=== PATIENT | female | born 1945 | race African-American/Black ===

== ENCOUNTER 2016-05-18 17:43 | Outpatient (CLI) | payer MEDICARE ==
[2016-05-18 18:38] LABS: Anion Gap 15 mmol/L (10-20); BUN (Urea Nitrogen) 9 mg/dL (9.8-20.1); Calc. Creatinine Clearance 0 mL/min (70-130); Carbon Dioxide 21 mmol/L (23-31); Chloride 110 mmol/L (98-107)
[2016-05-18 18:39] LABS: ALT (SGPT) 21 U/L (0-55); AST (SGOT) 21 U/L (5-34); Alkaline Phosphatase 148 U/L (40-150); Bilirubin, Total 0.3 mg/dL (0.2-1.2); Calcium 8.7 mg/dL (7.8-10.44); Estimated GFR-MDRD Greater than 90; Globulin 3.8 g/dL (2.4-3.5); LDL Cholesterol, Calculated 95 mg/dL; Protein, Total 7.8 g/dL (5.8-8.1)
[2016-05-18 19:21] LABS: Hematocrit 42.7 % (36.0-47.0); Neutrophil 35 % (42-75); Reactive Lymphocytes 5 % (0-10); Red Blood Cell (RBC) Count 4.65 mill/uL (4.20-5.40); White Blood Cell (WBC) Count 6.8 thou/uL (4.8-10.8)
== END 2016-05-18 17:44 | disposition home or self-care (01) ==
LOC: NAV SJFMSP 17:43
PROVIDERS: ATTEND Family Medicine
DX: E78.5 Hyperlipidemia, unspecified (principal); E03.9 Hypothyroidism, unspecified; R56.9 Unspecified convulsions
CPT/HCPCS: 80053; 80061; 80184; 84439; 84443; 85025

== ENCOUNTER 2016-05-24 16:45 | Emergency (ER) | payer MEDICARE ==
[2016-05-24 17:00] LABS: Bilirubin Negative (Negative); Blood, Urine Trace (Negative); Glucose, Urine (Dipstick) Negative (Negative); Ketone, Urine 15 mg/dL (Negative); Nitrite Negative (Negative); Protein, Urine (Dipstick) 100 mg/dL (Neg-Trace); Urobilinogen 0.2 mg/dL (0.2-1.0)
[2016-05-24 17:13] LABS: RBC/HPF 0-3 HPF (0-3); WBC/HPF 0-3 HPF (0-3)
--- NOTE | 2016-05-24 18:19 | ERRECORD ---
[facility] HPI UTI (17:04 BLEW) CHIEF COMPLAINT: Patient presents for evaluation of urinary tract infection signs or symptoms:, dysuria, frequency, hesitancy. HISTORIAN: History provided by patient. LOCATION: Symptoms are localized, most severe in the suprapubic region. QUALITY: "burning". SEVERITY: Maximum severity of symptoms moderate, Currently symptoms are moderate. TIME COURSE: Gradual onset of symptoms, are constant. ASSOCIATED WITH FEMALE: No associated abdominal pain, No associated chills, No associated diarrhea, No associated flank pain, No associated fever, No associated inability to tolerate oral fluids, No associated nausea, No associated night sweats, No associated vomiting. EXACERBATED BY: Patient's condition exacerbated by urination. RELIEVED BY: Patient's condition relieved by nothing, Patient's condition relieved by Cranberry juice not helpful. ROS (17:06 BLEW) CONSTITUTIONAL: Negative constitutional review of systems, Historian denies chills, denies fever. EYES: Negative eye review of systems. ENT: Negative ears, nose, throat review of systems. CARDIOVASCULAR: Negative cardiovascular review of systems, Historian denies chest pain, denies palpitations. RESPIRATORY: Negative respiratory review of systems, Historian denies cough, denies shortness of breath. GI: Negative gastrointestinal review of systems, Historian denies abdominal pain, denies constipation, denies diarrhea. MUSCULOSKELETAL: Negative musculoskeletal review of systems. SKIN: Negative skin review of systems. NEUROLOGIC: Negative neurologic review of systems. ENDOCRINE: Negative endocrine review of systems. HEMO/LYMPHATIC: Normal hematologic/lymphatic system review. PSYCHIATRIC: Negative psychiatric review of systems. NOTES: All other ROS is negative except as listed in HPI. PAST MEDICAL HISTORY MEDICAL HISTORY: Flu vaccine not up to date, Tetanus immunization up to date, Pneumococcal vaccine up to date, Past medical history includes musculoskeletal disorder, chronic back pain, left knee pain, Past medical history includes endocrine disease, hypothyroidism, includes history of hyperlipidemia,history of hypertension, which has been treated, includes neurological disease, Epilepsy musculoskeletal disorder, osteoarthritis. (16:54 BDON) FEMALE SURGICAL HISTORY: Surgical history of cholecystectomy, Surgical history of hysterectomy, Surgical history of thyroidectomy,. (16:54 BDON) &a-1R&a+25V*p+0X*i0056F*c202B*c15G*c2P*p-0X&a-25V&a+1R Name: Digna Thompson : 1945 F70 MedRec: [id number] AcctNum: [id number] Prepared: Darline May 25, 2016 08:03 by Interface Page 1 of 4 pMD [facility] EMERGENCY RECORD PSYCHIATRIC HISTORY: No previous psychiatric history. (16:54 BDON) SOCIAL HISTORY: Patient denies alcohol use, Patient denies drug use, Patient has no smoking history,. (16:54 BDON) NOTES: I have reviewed and agree with the PMH/PSxH/FamHx/SocHx obtained by the nurse. (17:06 BLEW) KNOWN ALLERGIES Adult Aspirin CURRENT MEDICATIONS (16:52 BDON) atorvastatin: TABLET : Strength - 10 mg : ORAL Patient Dose: 1 tab(s) Oral once a day (at bedtime). levothyroxine: TABLET : Strength - 100 mcg : ORAL Patient Dose: 1 tab(s) Oral once a day (in the morning).on an empty stomach. NexIUM: CAPSULE,DELAYED RELEASE (ENTERIC COATED) : Strength - 40 mg : ORAL Patient Dose: 1 tab(s) Oral once a day. amLODIPine: TABLET : Strength - 5 mg : ORAL Patient Dose: 1 tab(s) Oral once a day. ranitidine HCl: CAPSULE : Strength - 150 mg : ORAL Patient Dose: 1 tab(s) Oral 2 times a day. PHENobarbital: TABLET : Strength - 32.4 mg : ORAL Patient Dose: 4 tab(s) Oral once a day. topiramate: TABLET : Strength - 50 mg : ORAL Patient Dose: 50 mg Oral once a day (at bedtime). traMADol: TABLET : Strength - 50 mg : ORAL Patient Dose: 50 mg Oral every 6 hours PRN. VITAL SIGNS (16:52 BDON) VITAL SIGNS: BP: 121/74, Pulse: 100, Resp: 17, Temp: 96.0 (Oral), Pain: 2, O2 sat: 96, Time: 05/24/2016 16:52. PHYSICAL EXAM (17:06 BLEW) CONSTITUTIONAL: Vital signs reviewed, Patient appears non toxic, Patient alert and oriented to person, place and time, Pt is in no apparent distress. HEAD: Head exam included findings of head atraumatic, normocephalic. EYES: Eye exam included findings of eyelids normal to inspection, Pupils equally round and reactive to light, Extraocular muscles intact. &a-1R&a+25V*p+0X*t8602F*c202B*c15G*c2P*p-0X&a-25V&a+1R Name: Digna Thompson : 1945 F70 MedRec: [id number] AcctNum: [id number] Prepared: Darline May 25, 2016 08:03 by Interface Page 2 of 4 pMD [facility] EMERGENCY RECORD ENT: ENT exam normal, Nose exam normal, no nasal deformity, no bleeding from nares, Pharynx exam normal, Mouth exam normal, mucous membranes moist. NECK: Neck exam included findings of normal range of motion, Trachea midline. RESPIRATORY CHEST: Respiratory and chest exam normal, Breath sounds clear, No wheezing, No rales, Chest exam included findings of chest movement symmetrical, Chest expansion equal. CARDIOVASCULAR: Cardiovascular assessment normal, Cardiovascular exam included findings of heart rate regular rate and rhythm, Heart sounds normal. ABDOMEN FEMALE: Abdominal exam included findings of abdomen nontender, Bowel sounds normal, no mass, no pulsatile masses, no peritoneal signs. BACK: Back exam included findings of normal inspection, range of motion normal, no costovertebral angle tenderness. UPPER EXTREMITY: Upper extremity exam included findings of inspection normal, Range of motion normal. LOWER EXTREMITY: Lower extremity exam included findings of inspection normal, Range of motion normal. NEURO: Neuro exam findings include patient oriented to person, place and time, Speech normal, no focal motor deficits, no focal sensory deficits. SKIN: Skin exam included findings of skin warm, dry, and normal in color. LYMPHATIC: Lymphatic exam normal. PSYCHIATRIC: Psychiatric exam included findings of patient oriented to person place and time, Normal affect. PROBLEM LIST No recorded problems DIAGNOSIS (17:29 BLEW) FINAL: PRIMARY: DYSURIA. PRESCRIPTION (17:30 BLEW) Pyridium: TABLET : 200 mg : ORAL : Quantity: 1 Unit: tab(s) Route: ORAL Schedule: 3 times a day Dispense: 12 May substitute. Refills: No Refills . NOTES: No Refills. Cipro tablet: TABLET : 500 mg : ORAL : Quantity: 1 Unit: tab(s) Route: ORAL Schedule: 2 times a day (before meals) Dispense: 14 May substitute. Refills: No Refills . NOTES: ^s=No Refills No Refills. DISPOSITION PATIENT: Disposition Type: Discharge, Disposition: *Discharge Home. (17:29 BLEW) &a-1R&a+25V*p+0X*k8760X*c202B*c15G*c2P*p-0X&a-25V&a+1R Name: Jay Digna B : 1945 F70 MedRec: [id number] AcctNum: [id number] Prepared: SunMay 25, 2016 08:03 by Interface Page 3 of 4 pMD [facility] EMERGENCY RECORD Patient left the department. (17:57 BDON) Cuellar: BDON=ASHER Lee, Jillian BLEW=DO Bryson Brandon &a-1R&a+25V*p+0X*j1504T*c202B*c15G*c2P*p-0X&a-25V&a+1R Name: Digna Thompson : 1945 F70 MedRec: [id number] AcctNum: [id number] Prepared: Darline May 25, 2016 08:03 by Interface Page 4 of 4 pMD MTDD
--- NOTE | 2016-05-24 18:21 | PICIS ---
[facility] EMERGENCY RECORD TRIAGE (SunMay 24, 2016 16:49 JPAR) TRIAGE NOTES: Painful urination. (SunMay 24, 2016 16:49 JPAR) PATIENT: NAME: Digna Thompson, AGE: 70, GENDER: female, : Sun1945, TIME OF GREET: SunMay 24, 2016 16:46, PREFERRED LANGUAGE: Qatari, ETHNICITY: Not or , ECODE BILLING MAP: [facility], SSN: [id number], Zip Code: [address], KG WEIGHT: 92.99, PHONE: , , , PERSON ID: [id number], PCP: MD Yu Jacques. (SunMay 24, 2016 16:49 JPAR) COMPLAINT: PAINFUL URINATION. (SunMay 24, 2016 16:49 JPAR) ADMISSION: URGENCY: 4 Non Urgent, ADMISSION SOURCE: Home, TRANSPORT: Walk-in, BED: TRIAGE. (SunMay 24, 2016 16:49 JPAR) ASSESSMENT: Assessment: Frequent, burning urination, Symptoms began 1 week ago. (16:54 BDON) PROVIDERS: TRIAGE NURSE: Yovany Bliss RN. (SunMay 24, 2016 16:49 JPAR) VITAL SIGNS: BP 121/74, Pulse 100, Resp 17, Temp 96.0, (Oral), Pain 2, O2 Sat 96, Time 05/24/2016 16:52. (16:52 BDON) PREVIOUS VISIT ALLERGIES: Adult Aspirin. (SunMay 24, 2016 16:49 JPAR) Adult Aspirin. (16:54 BDON) KNOWN ALLERGIES Adult Aspirin CURRENT MEDICATIONS (16:52 BDON) atorvastatin: TABLET : Strength - 10 mg : ORAL Patient Dose: 1 tab(s) Oral once a day (at bedtime). levothyroxine: TABLET : Strength - 100 mcg : ORAL Patient Dose: 1 tab(s) Oral once a day (in the morning).on an empty stomach. NexIUM: CAPSULE,DELAYED RELEASE (ENTERIC COATED) : Strength - 40 mg : ORAL Patient Dose: 1 tab(s) Oral once a day. amLODIPine: TABLET : Strength - 5 mg : ORAL Patient Dose: 1 tab(s) Oral once a day. ranitidine HCl: CAPSULE : Strength - 150 mg : ORAL Patient Dose: 1 tab(s) Oral 2 times a day. PHENobarbital: TABLET : Strength - 32.4 mg : ORAL Patient Dose: 4 tab(s) Oral once a day. topiramate: TABLET : Strength - 50 mg : ORAL Patient Dose: 50 mg Oral once a day (at bedtime). traMADol: &a-1R&a+25V*p+0X*h9234Y*c202B*c15G*c2P*p-0X&a-25V&a+1R Name: Digna Thompson : 1945 F70 MedRec: [id number] AcctNum: [id number] Prepared: Darline May 25, 2016 08:08 by Interface Page 1 of 6 pMD [facility] EMERGENCY RECORD TABLET : Strength - 50 mg : ORAL Patient Dose: 50 mg Oral every 6 hours PRN. VITAL SIGNS (16:52 BDON) VITAL SIGNS: BP: 121/74, Pulse: 100, Resp: 17, Temp: 96.0 (Oral), Pain: 2, O2 sat: 96, Time: 05/24/2016 16:52. NURSING ASSESSMENT: GENITOURINARY (17:01 BDON) CONSTITUTIONAL: Patient arrives ambulatory, Gait steady, History obtained from patient, Patient appears comfortable, Patient cooperative, Patient alert, Oriented to person, place and time, Skin warm, Skin dry, Skin normal in color, Patient is well-groomed. PAIN FEMALE: burning pain. GENITOURINARY FEMALE: Associated with urinary complaints, burning, frequency. ABDOMEN: Abdomen assessment findings include abdomen symmetrical, Abdomen soft, tender, suprapubic. SAFETY: Cart/Stretcher in lowest position, Hospital ID band on, Patient in view of the nursing station. NURSING PROCEDURE: DISCHARGE NOTE (17:35 BDON) DISCHARGE: Patient discharged to home, ambulating without assistance, family driving, accompanied by other family member, Summary of Care printed/ provided, Patient requested and was provided an electronic copy of Discharge Instructions, Transition record given to patient, Discharge instructions given to patient, Simple or moderate discharge teaching performed, Prescriptions given and instructions on side effects given, Medication reconciliation form given, Above person(s) verbalized understanding of discharge instructions and follow-up care, Patient treated and evaluated by physician. NURSING PROCEDURE: URINE COLLECTION (16:53 LAURIE) PATIENT IDENTIFIER: Patient actively involved in identification process, Patient's identity verified by patient stating name, Patient's identity verified by patient stating date, Patient's identity verified by hospital ID bracelet. URINE COLLECTION FEMALE: Urine collection indicated to monitor output, Urine collection indicated for Burning Frequent Urination, Urine collected by void, output amount (mL) 30, urine yellow in color, and clear, Specimen labeled in the presence of the patient and sent to lab, Specimen obtained for culture labeled in the presence of the patient and sent to lab. SAFETY: Side rails up, Cart/Stretcher in lowest position, Call light within reach, Hospital ID band on. ORDER DETAILS Order Name: Culture, Urine, Status: Active, Time: 17:34 05/24/2016, User: JOSE CARLOS, &a-1R&a+25V*p+0X*f9444Z*c202B*c15G*c2P*p-0X&a-25V&a+1R Name: Digna Thompson : 1945 F70 MedRec: [id number] AcctNum: [id number] Prepared: [facility] May 25, 2016 08:08 by Interface Page 2 of 6 D [facility] EMERGENCY RECORD - Ordered for: DO Bryson Brandon, - Entered by: DO Bryson Brandon - [facility] May 24, 2016 17:34, - Quantity: 1, Order Name: Urinalysis w/ Rflx Microscopic, Status: Active, Time: 16:50 05/24/2016, User: LAURIE, - Ordered for: DO Bryson Brandon, - Entered by: ASHER Bliss Jason - [facility] May 24, 2016 16:50, - Quantity: 1. HPI UTI (17:04 STEFANW) CHIEF COMPLAINT: Patient presents for evaluation of urinary tract infection signs or symptoms:, dysuria, frequency, hesitancy. HISTORIAN: History provided by patient. LOCATION: Symptoms are localized, most severe in the suprapubic region. QUALITY: "burning". SEVERITY: Maximum severity of symptoms moderate, Currently symptoms are moderate. TIME COURSE: Gradual onset of symptoms, are constant. ASSOCIATED WITH FEMALE: No associated abdominal pain, No associated chills, No associated diarrhea, No associated flank pain, No associated fever, No associated inability to tolerate oral fluids, No associated nausea, No associated night sweats, No associated vomiting. EXACERBATED BY: Patient's condition exacerbated by urination. RELIEVED BY: Patient's condition relieved by nothing, Patient's condition relieved by Cranberry juice not helpful. ROS (17:06 BLEW) CONSTITUTIONAL: Negative constitutional review of systems, Historian denies chills, denies fever. EYES: Negative eye review of systems. ENT: Negative ears, nose, throat review of systems. CARDIOVASCULAR: Negative cardiovascular review of systems, Historian denies chest pain, denies palpitations. RESPIRATORY: Negative respiratory review of systems, Historian denies cough, denies shortness of breath. GI: Negative gastrointestinal review of systems, Historian denies abdominal pain, denies constipation, denies diarrhea. MUSCULOSKELETAL: Negative musculoskeletal review of systems. SKIN: Negative skin review of systems. NEUROLOGIC: Negative neurologic review of systems. ENDOCRINE: Negative endocrine review of systems. HEMO/LYMPHATIC: Normal hematologic/lymphatic system review. PSYCHIATRIC: Negative psychiatric review of systems. NOTES: All other ROS is negative except as listed in HPI. PAST MEDICAL HISTORY MEDICAL HISTORY: Flu vaccine not up to date, Tetanus &a-1R&a+25V*p+0X*v8781U*c202B*c15G*c2P*p-0X&a-25V&a+1R Name: Digna Thompson : 1945 F70 MedRec: [id number] AcctNum: [id number] Prepared: [facility] May 25, 2016 08:08 by Interface Page 3 of 6 pMD [facility] EMERGENCY RECORD immunization up to date, Pneumococcal vaccine up to date, Past medical history includes musculoskeletal disorder, chronic back pain, left knee pain, Past medical history includes endocrine disease, hypothyroidism, includes history of hyperlipidemia,history of hypertension, which has been treated, includes neurological disease, Epilepsy musculoskeletal disorder, osteoarthritis. (16:54 BDON) FEMALE SURGICAL HISTORY: Surgical history of cholecystectomy, Surgical history of hysterectomy, Surgical history of thyroidectomy,. (16:54 BDON) PSYCHIATRIC HISTORY: No previous psychiatric history. (16:54 BDON) SOCIAL HISTORY: Patient denies alcohol use, Patient denies drug use, Patient has no smoking history,. (16:54 BDON) NOTES: I have reviewed and agree with the PMH/PSxH/FamHx/SocHx obtained by the nurse. (17:06 BLEW) PHYSICAL EXAM (17:06 BLEW) CONSTITUTIONAL: Vital signs reviewed, Patient appears non toxic, Patient alert and oriented to person, place and time, Pt is in no apparent distress. HEAD: Head exam included findings of head atraumatic, normocephalic. EYES: Eye exam included findings of eyelids normal to inspection, Pupils equally round and reactive to light, Extraocular muscles intact. ENT: ENT exam normal, Nose exam normal, no nasal deformity, no bleeding from nares, Pharynx exam normal, Mouth exam normal, mucous membranes moist. NECK: Neck exam included findings of normal range of motion, Trachea midline. RESPIRATORY CHEST: Respiratory and chest exam normal, Breath sounds clear, No wheezing, No rales, Chest exam included findings of chest movement symmetrical, Chest expansion equal. CARDIOVASCULAR: Cardiovascular assessment normal, Cardiovascular exam included findings of heart rate regular rate and rhythm, Heart sounds normal. ABDOMEN FEMALE: Abdominal exam included findings of abdomen nontender, Bowel sounds normal, no mass, no pulsatile masses, no peritoneal signs. BACK: Back exam included findings of normal inspection, range of motion normal, no costovertebral angle tenderness. UPPER EXTREMITY: Upper extremity exam included findings of inspection normal, Range of motion normal. LOWER EXTREMITY: Lower extremity exam included findings of inspection normal, Range of motion normal. NEURO: Neuro exam findings include patient oriented to person, place and time, Speech normal, no focal motor deficits, no focal sensory deficits. SKIN: Skin exam included findings of skin warm, dry, and normal in color. &a-1R&a+25V*p+0X*q3735B*c202B*c15G*c2P*p-0X&a-25V&a+1R Name: Digna Thompson Erika : 1945 F70 MedRec: [id number] AcctNum: [id number] Prepared: Dalrine May 25, 2016 08:08 by Interface Page 4 of 6 pMD [facility] EMERGENCY RECORD LYMPHATIC: Lymphatic exam normal. PSYCHIATRIC: Psychiatric exam included findings of patient oriented to person place and time, Normal affect. EVENTS TRANSFER: Triage to Emergency Triage. (SunMay 24, 2016 16:49 JPAR) Emergency Triage to Emergency Room -03. (16:52 BDON) Removed from Emergency Emergency Room -03. (17:57 BDON) PROBLEM LIST No recorded problems DIAGNOSIS (17:29 BLEW) FINAL: PRIMARY: DYSURIA. DISPOSITION PATIENT: Disposition Type: Discharge, Disposition: *Discharge Home. (17:29 BLEW) Patient left the department. (17:57 BDON) INSTRUCTION (17:31 BLEW) DISCHARGE: DYSURIA, UNCERTAIN CAUSE (ADULT). FOLLOWUP: MD Yu Jacques, Family Practice, [facility], [address] [place] [id number], , Follow up with Primary Care Physician in 2-3 days. SPECIAL: Take medications as prescribed. Have you doctor check on culture results in 2-3 days. Call your doctor or return with worsening or worrisome symptoms. PRESCRIPTION (17:30 BLEW) Pyridium: TABLET : 200 mg : ORAL : Quantity: 1 Unit: tab(s) Route: ORAL Schedule: 3 times a day Dispense: 12 May substitute. Refills: No Refills . NOTES: No Refills. Cipro tablet: TABLET : 500 mg : ORAL : Quantity: 1 Unit: tab(s) Route: ORAL Schedule: 2 times a day (before meals) Dispense: 14 May substitute. Refills: No Refills . NOTES: ^s=No Refills No Refills. IMAGING *DISCHARGE INSTRUCTIONS RECEIPT: Image captured from scanner. (17:53 BDON) *SUPPLY CHARGE SHEET: Image captured from scanner. (17:54 BDON) ADMIN DIGITAL SIGNATURE: ASHER Lee, Jillian. (17:57 BDON) DO Bryson Brandon. (SunMay 25, 2016 08:00 BLEW) &a-1R&a+25V*p+0X*h6888M*c202B*c15G*c2P*p-0X&a-25V&a+1R Name: Digna Thompson : 1945 F70 MedRec: [id number] AcctNum: [id number] Prepared: SunMay 25, 2016 08:08 by Interface Page 5 of 6 pMD [facility] EMERGENCY RECORD RESULTS (17:29 BLEW) LABORATORY: Urine Microscopic Collection DT: SunMay 24, 2016 16:55, RBC/HPF 0-3 HPF, Range (0-3), WBC/HPF 0-3 HPF, Range (0-3), *Squamous Epithelial 4-6 - H HPF, Range (0-3). Urinalysis w/ Rflx Microscopic Collection DT: SunMay 24, 2016 16:55, Color Yellow , Range (Yellow), Clarity SL HAZY , Range (Clear), Specific [place], Urine 1.034 , Range (1.002-1.036), , pH, Urine 5.5 , Range (5.0-9.0), Leukocyte Negative , Range (Negative), Nitrite Negative , Range (Negative), *Protein, Urine (Dipstick) 100 - H mg/dL, Range (Neg-Trace), Glucose, Urine (Dipstick) Negative mg/dL, Range (Negative), *Ketone, Urine 15 - H mg/dL, Range (Negative), Urobilinogen 0.2 mg/dL, Range (0.2-1.0), Bilirubin Negative , Range (Negative), *Blood, Urine Trace - H , Range (Negative). Cuellar: CAMELIA=ASHER Lee, Jillian BRANCH=DO Bryson Brandon JPAR=ASHER Bliss, Yovany &a-1R&a+25V*p+0X*d3666S*c202B*c15G*c2P*p-0X&a-25V&a+1R Name: JayMarlyngabriel James : 1945 F70 MedRec: [id number] AcctNum: [id number] Prepared: SunMay 25, 2016 08:08 by Interface Page 6 of 6 pMD MTDD
== END 2016-05-24 17:35 | disposition home or self-care (01) ==
LOC: NAV ERS 16:45
DX: R30.0 Dysuria (principal); E03.9 Hypothyroidism, unspecified; E78.5 Hyperlipidemia, unspecified; I10 Essential (primary) hypertension; Z79.899 Other long term (current) drug therapy
CPT/HCPCS: 81003; 81015; 87086; 99283

== ENCOUNTER 2016-12-19 16:44 | Emergency (ER) | payer MEDICARE ==
[2016-12-19] MEDS ORDERED: Lorazepam 2 MG/ML VIAL ONE ×2 (17:02→17:03)
[2016-12-19 18:21] LABS: #Basophils 0.1 thou/uL (0.0-0.2); #Eosinphils 0.2 thou/uL (0.0-0.7); #Lymphocytes 4.9 thou/uL (1.20-3.40); #Monocytes 0.8 thou/uL (0.11-0.59); #Neutrophils 3.9 thou/uL (1.40-6.50); %Basophils 1.4 % (0.0-1.0); %Eosinophils 1.9 % (0.0-10.0); %Lymphocytes 49.5 % (21.0-51.0); %Monocytes 8.3 % (0.0-10.0); Hemoglobin 12.8 g/dL (12.0-16.0); Mean Corpuscular HGB CONC 31.7 g/dL (32.0-36.0); Mean Corpuscular Hemoglobin 28.4 pg (27.0-31.0); Mean Corpuscular Volume 89.8 fl (81.0-99.0); Mean Platelet Volume 7.9 fL (7.4-10.4); Platelet Count 243 thou/uL (130-400); Red Blood Cell (RBC) Count 4.51 mill/uL (4.20-5.40); White Blood Cell (WBC) Count 9.9 thou/uL (4.8-10.8)
[2016-12-19 18:27] LABS: ALT (SGPT) 14 U/L (8-55); AST (SGOT) 15 U/L (5-34); Albumin 3.6 g/dL (3.4-4.8); Alkaline Phosphatase 145 U/L (40-150); Anion Gap 13 mmol/L (10-20); BUN (Urea Nitrogen) 9 mg/dL (9.8-20.1); Bilirubin, Total 0.2 mg/dL (0.2-1.2); Calc. Creatinine Clearance 0 mL/min (70-130); Calcium 8.4 mg/dL (7.8-10.44); Carbon Dioxide 20 mmol/L (23-31); Chloride 112 mmol/L (98-107); Estimated GFR-MDRD 77; Globulin 3.6 g/dL (2.4-3.5); Glucose 103 mg/dL (80-115); Potassium 3.7 mmol/L (3.5-5.1); Protein, Total 7.2 g/dL (6.0-8.3); Sodium 141 mmol/L (136-145)
[2016-12-19] MEDS ORDERED: Ibuprofen 200 MG TAB ONE (18:47)
--- NOTE | 2016-12-19 20:43 | CT ---
CT BRAIN WITHOUT CONTRAST 12/19/16 HISTORY: Seizure and headache. FINDINGS: Comparison is made with exam of 07/26/15. No evidence of acute infarct, hemorrhage, midline shift or abnormal extra-axial fluid collections ar e seen. The ventricular size is normal and the basilar cisterns patent. The small density in the sub cutaneous left parietal scalp is stable, likely sebaceous cyst is again seen. The bony calvarium is intact. The visualized paranasal sinuses and mastoid air cells are well aerated. IMPRESSION: No CT evidence of acute intracranial process. POS: [facility]
== END 2016-12-19 18:54 | disposition home or self-care (01) ==
LOC: NAV ERS 16:44
DX: R56.9 Unspecified convulsions (principal); G44.209 Tension-type headache, unspecified, not intractable; G89.29 Other chronic pain; M54.9 Dorsalgia, unspecified; M19.90 Unspecified osteoarthritis, unspecified site; Z79.899 Other long term (current) drug therapy
CPT/HCPCS: 36415; 36416; 70450; 80053; 80184; 83605; 85025; J2060

== ENCOUNTER 2017-11-28 20:48 | Emergency (ER) | payer MEDICARE ==
[2017-11-28] MEDS ORDERED: Bacitracin Zinc 1 Packet ONE (21:15)
[2017-11-28] MEDS ORDERED: Acetaminophen 325 MG TAB ONE (22:00)
[2017-11-28] MEDS ORDERED: Meclizine HCl 25 MG TAB ONE (22:00)
[2017-11-28] MEDS ORDERED: Acetaminophen 325 MG Suppository ONE (22:00)
== END 2017-11-28 23:40 | disposition home or self-care (01) ==
LOC: NAV ERS 20:48
DX: R04.0 Epistaxis (principal); R51 Headache; E03.9 Hypothyroidism, unspecified; I10 Essential (primary) hypertension; E78.5 Hyperlipidemia, unspecified; M19.90 Unspecified osteoarthritis, unspecified site; G40.909 Epilepsy, unspecified, not intractable, without status epilepticus; Z79.899 Other long term (current) drug therapy
CPT/HCPCS: 30901

== ENCOUNTER 2018-03-11 11:12 | Outpatient (CLI) | payer MEDICARE ==
--- NOTE | 2018-03-11 17:32 | ULT ---
RIGHT GROIN ULTRASOUND SOFT TISSUE: Date: 03/11/18 HISTORY: Pain. Chronic pain. COMPARISON: None. FINDINGS: There are a few small normal appearing lymph nodes of the right groin. No abnormal mass. IMPRESSION: Normal examination of the right groin. CT may be beneficial to evaluate for hernia if clinically wallace anted. POS: [facility]
== END 2018-03-11 11:13 | disposition home or self-care (01) ==
LOC: NAV ULT 11:12
PROVIDERS: ATTEND Family Medicine
DX: R10.31 Right lower quadrant pain (principal)
CPT/HCPCS: 76999

== ENCOUNTER 2018-11-16 08:58 | Emergency (ER) | payer MEDICARE ==
[2018-11-16] MEDS ORDERED: GASTROGRAFIN 30 ML BOT ONE (09:00)
[2018-11-16] MEDS ORDERED: Iopamidol 370 76% 100 ML VIAL ONE (09:00)
[2018-11-16] MEDS ORDERED: Fentanyl 100 MCG/2 ML VIAL ONE (09:30)
[2018-11-16 09:44] LABS: Bilirubin Negative (Negative); Blood, Urine Trace (Negative); Clarity Clear (Clear); Glucose, Urine (Dipstick) Negative (Negative); Leukocyte Negative (Negative); Nitrite Negative (Negative); Protein, Urine (Dipstick) Negative (Neg-Trace); Urobilinogen 0.2 mg/dL (Less than 2)
[2018-11-16 09:45] LABS: Bacteria/HPF Rare-Few HPF (None Seen); RBC/HPF 0-3 HPF (0-3); WBC/HPF None Seen HPF (0-3)
[2018-11-16 10:09] LABS: ALT (SGPT) 15 U/L (8-55); AST (SGOT) 15 U/L (5-34); Albumin 3.8 g/dL (3.4-4.8); Alkaline Phosphatase 157 U/L (40-150); Anion Gap 15 mmol/L (10-20); BUN (Urea Nitrogen) 12 mg/dL (9.8-20.1); Bilirubin, Total 0.3 mg/dL (0.2-1.2); Calc. Creatinine Clearance 0 mL/min (70-130); Calcium 9.2 mg/dL (7.8-10.44); Carbon Dioxide 21 mmol/L (23-31); Chloride 107 mmol/L (98-107); Estimated GFR-MDRD 85; Globulin 4.1 g/dL (2.4-3.5); Glucose 89 mg/dL (83-110); Protein, Total 7.9 g/dL (6.0-8.3); Sodium 139 mmol/L (136-145)
[2018-11-16 10:11] LABS: #Basophils 0.2 thou/uL (0.0-0.2); #Eosinphils 0.2 thou/uL (0.0-0.7); #Lymphocytes 4.6 thou/uL (1.20-3.40); #Neutrophils 5.4 thou/uL (1.40-6.50); %Basophils 1.3 % (0.0-1.0); %Eosinophils 1.9 % (0.0-10.0); %Lymphocytes 40.5 % (21.0-51.0); %Monocytes 8.6 % (0.0-10.0); %Neutrophils 47.8 % (42.0-75.0); Hemoglobin 13.2 g/dL (12.0-16.0); Mean Corpuscular HGB CONC 31.2 g/dL (32.0-36.0); Mean Corpuscular Hemoglobin 28.1 pg (27.0-31.0); Mean Corpuscular Volume 90.1 fL (78.0-98.0); Mean Platelet Volume 7.2 fL (7.4-10.4); Platelet Count 292 thou/uL (130-400); RBC Distribution Width 13.6 % (11.5-14.5); Red Blood Cell (RBC) Count 4.71 mill/uL (4.20-5.40); White Blood Cell (WBC) Count 11.3 thou/uL (4.8-10.8)
--- NOTE | 2018-11-16 12:34 | CT ---
CT OF THE ABDOMEN AND PELVIS WITH IV CONTRAST INDICATION: Abdominal Pain COMPARISON: January 12, 2011 FINDINGS: ABDOMEN: Lung bases: There is mild right basilar atelectasis. There is a moderate hiatal hernia Liver: No focal lesion. Gallbladder: Not visualized, presumed to be surgically absent Pancreas: Normal. Adrenal glands: Normal. Spleen: Normal. Kidneys: Normal. Retroperitoneum of the upper abdomen: No lymphadenopathy or free fluid is identified. Pelvis: Small and large bowel: There is wall thickening and sclerotic line diverticula involving the proximal sigmoid colon and distal cyst descending colon suspicious for colitis. No drainable fluid collection is evident. Bladder: Normal. Rectal and perirectal soft tissues:Normal. Reproductive structures: Surgically absent Free fluid in pelvis: No free fluid is evident. Lymphadenopathy pelvis: No lymphadenopathy is evident. Osseous structures: No acute osseous abnormality. No destructive osteolytic or osteoblastic lesion i s identified. There is scattered degenerative and osteoarthritic changes. IMPRESSION: 1. Noncomplicated descending colon and sigmoid diverticulitis.
== END 2018-11-16 13:30 | disposition home or self-care (01) ==
LOC: NAV ERS 08:58
DX: K57.32 Diverticulitis of large intestine without perforation or abscess without bleeding (principal); E03.9 Hypothyroidism, unspecified; E78.5 Hyperlipidemia, unspecified; I10 Essential (primary) hypertension; M19.90 Unspecified osteoarthritis, unspecified site; Z79.899 Other long term (current) drug therapy
CPT/HCPCS: 74177; 80053; 81003; 81015; 82274; 83630; 85025; 87045; 87046; 87449; 87899; 96374; J3010; Q9963; Q9967

== ENCOUNTER 2018-12-20 20:35 | Emergency (ER) | payer MEDICARE ==
[2018-12-20] MEDS ORDERED: diphenhydrAMINE 50 MG/ML VIAL ONE (21:09)
[2018-12-20] MEDS ORDERED: Promethazine HCl 25 MG/ML VIAL ONE (21:09)
[2018-12-20 21:21] LABS: #Basophils 0.1 thou/uL (0.0-0.2); #Eosinphils 0.1 thou/uL (0.0-0.7); #Lymphocytes 5.7 thou/uL (1.20-3.40); #Monocytes 0.7 thou/uL (0.11-0.59); %Basophils 1.4 % (0.0-1.0); %Eosinophils 1.2 % (0.0-10.0); %Lymphocytes 53.2 % (21.0-51.0); %Monocytes 6.7 % (0.0-10.0); %Neutrophils 37.5 % (42.0-75.0); Hemoglobin 12.9 g/dL (12.0-16.0); Mean Corpuscular HGB CONC 31.4 g/dL (32.0-36.0); Mean Corpuscular Hemoglobin 28.1 pg (27.0-31.0); Mean Corpuscular Volume 89.4 fL (78.0-98.0); Mean Platelet Volume 7.5 fL (7.4-10.4); Platelet Count 284 thou/uL (130-400); RBC Distribution Width 13.3 % (11.5-14.5); Red Blood Cell (RBC) Count 4.61 mill/uL (4.20-5.40); White Blood Cell (WBC) Count 10.8 thou/uL (4.8-10.8)
[2018-12-20 21:33] LABS: ALT (SGPT) 12 U/L (8-55); AST (SGOT) 15 U/L (5-34); Albumin 3.7 g/dL (3.4-4.8); Alkaline Phosphatase 158 U/L (40-150); Anion Gap 17 mmol/L (10-20); BUN (Urea Nitrogen) 10 mg/dL (9.8-20.1); Calc. Creatinine Clearance 0 mL/min (70-130); Calcium 8.9 mg/dL (7.8-10.44); Carbon Dioxide 18 mmol/L (23-31); Chloride 107 mmol/L (98-107); Estimated GFR-MDRD Greater than 90; Globulin 4.1 g/dL (2.4-3.5); Glucose 92 mg/dL (83-110); Potassium 3.9 mmol/L (3.5-5.1); Protein, Total 7.8 g/dL (6.0-8.3); Sodium 138 mmol/L (136-145)
[2018-12-20 21:50] LABS: Bilirubin, Total 0.1 mg/dL (0.2-1.2)
== END 2018-12-20 22:12 | disposition home or self-care (01) ==
LOC: NAV ERS 20:35
DX: G43.009 Migraine without aura, not intractable, without status migrainosus (principal); E03.9 Hypothyroidism, unspecified; E78.5 Hyperlipidemia, unspecified; I10 Essential (primary) hypertension; M19.90 Unspecified osteoarthritis, unspecified site; Z79.899 Other long term (current) drug therapy
CPT/HCPCS: 80053; 85025; 96361; 96374; 96375; J1200; J2550

== ENCOUNTER 2019-06-28 22:51 | Inpatient (IN) | payer MEDICARE ==
[2019-06-28 23:18] LABS: Bilirubin Negative (Negative); Blood, Urine Trace (Negative); Clarity Clear (Clear); Glucose, Urine (Dipstick) Negative (Negative); Leukocyte Negative (Negative); Nitrite Negative (Negative); Protein, Urine (Dipstick) Negative (Neg-Trace); Urobilinogen 0.2 mg/dL (Less than 2)
[2019-06-28 23:20] LABS: RBC/HPF 0-3 HPF (0-3); Squamous Epithelial 0-3 HPF (0-3); WBC/HPF 0-3 HPF (0-3)
[2019-06-28 23:21] LABS: Bacteria/HPF Rare-Few HPF (None Seen)
[2019-06-28 23:40] LABS: #Basophils 0.1 thou/uL (0.0-0.2); #Eosinphils 0.1 thou/uL (0.0-0.7); #Lymphocytes 5.5 thou/uL (1.20-3.40); #Neutrophils 5.3 thou/uL (1.40-6.50); %Eosinophils 1.1 % (0.0-10.0); %Lymphocytes 45.8 % (21.0-51.0); %Monocytes 8.4 % (0.0-10.0); %Neutrophils 43.7 % (42.0-75.0); Hemoglobin 12.4 g/dL (12.0-16.0); Mean Corpuscular HGB CONC 31.6 g/dL (32.0-36.0); Mean Corpuscular Hemoglobin 28.4 pg (27.0-31.0); Mean Corpuscular Volume 89.9 fL (78.0-98.0); Mean Platelet Volume 7.8 fL (7.4-10.4); Platelet Count 321 thou/uL (130-400); RBC Distribution Width 13.9 % (11.5-14.5); Red Blood Cell (RBC) Count 4.37 mill/uL (4.20-5.40)
[2019-06-28] MEDS ORDERED: Promethazine HCl 25 MG/ML VIAL ONE (23:42)
[2019-06-28] MEDS ORDERED: Morphine 2 MG/ML SYRINGE ONE (23:42)
[2019-06-28] MEDS ORDERED: Sodium Chloride 0.9% 1,000 ML ONE (23:42)
[2019-06-28] MEDS ORDERED: diphenhydrAMINE 50 MG/ML VIAL ONE (23:42)
[2019-06-28] MEDS ORDERED: Ondansetron PF 4 MG/2 ML Vial ONE (23:42)
[2019-06-28 23:55] LABS: ALT (SGPT) 14 U/L (8-55); AST (SGOT) 15 U/L (5-34); Albumin 3.6 g/dL (3.4-4.8); Alkaline Phosphatase 175 U/L (40-110); Anion Gap 13 mmol/L (10-20); BUN (Urea Nitrogen) 11 mg/dL (9.8-20.1); Bilirubin, Total 0.1 mg/dL (0.2-1.2); Calc. Creatinine Clearance 0 mL/min (70-130); Calcium 8.7 mg/dL (7.8-10.44); Carbon Dioxide 25 mmol/L (23-31); Chloride 107 mmol/L (98-107); Estimated GFR-MDRD 88; Globulin 3.7 g/dL (2.4-3.5); Glucose 92 mg/dL (83-110); Lipase 7 U/L (8-78); Protein, Total 7.3 g/dL (6.0-8.3); Sodium 141 mmol/L (136-145)
[2019-06-29] MEDS ORDERED: metroNIDAZOLE 500 MG/100 ML BAG ONE (01:43)
[2019-06-29] MEDS ORDERED: Ciprofloxacin Lactate/D5W 400 mg/200 ml Premix ONE (01:43)
[2019-06-29 04:05] VITALS: BMI 35.3
[2019-06-29 07:29] LABS: #Basophils 0.2 thou/uL (0.0-0.2); #Eosinphils 0.2 thou/uL (0.0-0.7); #Lymphocytes 4.6 thou/uL (1.20-3.40); #Monocytes 0.8 thou/uL (0.11-0.59); #Neutrophils 3.5 thou/uL (1.40-6.50); %Basophils 1.7 % (0.0-1.0); %Eosinophils 1.6 % (0.0-10.0); %Lymphocytes 49.7 % (21.0-51.0); Hemoglobin 12.3 g/dL (12.0-16.0); Mean Corpuscular HGB CONC 31.7 g/dL (32.0-36.0); Mean Corpuscular Hemoglobin 28.9 pg (27.0-31.0); Mean Corpuscular Volume 91.3 fL (78.0-98.0); Mean Platelet Volume 7.6 fL (7.4-10.4); Platelet Count 292 thou/uL (130-400); RBC Distribution Width 13.7 % (11.5-14.5); Red Blood Cell (RBC) Count 4.24 mill/uL (4.20-5.40); White Blood Cell (WBC) Count 9.3 thou/uL (4.8-10.8)
[2019-06-29] MEDS ORDERED: Ondansetron ODT 4 MG TAB PO PRN (07:36)
[2019-06-29 07:41] LABS: Anion Gap 12 mmol/L (10-20); BUN (Urea Nitrogen) 8 mg/dL (9.8-20.1); Calc. Creatinine Clearance 99 mL/min (70-130); Calcium 8.5 mg/dL (7.8-10.44); Carbon Dioxide 25 mmol/L (23-31); Chloride 108 mmol/L (98-107); Estimated GFR-MDRD Greater than 90; Glucose 85 mg/dL (83-110); Potassium 4.1 mmol/L (3.5-5.1); Sodium 141 mmol/L (136-145)
[2019-06-29] MEDS ORDERED: traMADol HCl 50 MG TAB PO PRN (07:42)
[2019-06-29] MEDS ORDERED: Nitroglycerin 0.4 MG TAB (25 Tab Bottle) SL PRN (07:54)
[2019-06-29] MEDS ORDERED: Temazepam 15 MG CAP PO PRN (07:56)
[2019-06-29] MEDS ORDERED: PHENobarbital 32.4 MG TAB PO SCH (09:00)
[2019-06-29] MEDS ORDERED: Iopamidol 370 76% 100 ML VIAL ONE (09:00)
[2019-06-29] MEDS: Famotidine 20 MG TAB PO SCH ×2 (09:34→20:50)
[2019-06-29] MEDS: Potassium Chloride 10 MEQ TAB PO SCH (09:34)
[2019-06-29] MEDS: Furosemide 40 MG TAB PO SCH (09:35)
[2019-06-29] MEDS: Amlodipine 5 MG TAB PO SCH ×2 (09:35→20:49)
[2019-06-29] MEDS: metroNIDAZOLE 500 MG TAB PO SCH ×3 (09:41→20:50)
--- NOTE | 2019-06-29 10:35 | CT ---
PRELIMINARY REPORT/[facility]/AFTER HOURS PROCEDURE CT ABDOMEN AND PELVIS WITH INTRAVENOUS CONTRAST: CLINICAL HISTORY: C/O RUBIN and lower abdominal pain that started earlier this evening. Surgical Hx cholecystectomy, hyste rectomy, ordered IV only, 96 mL Isovue-370 RT AC. TECHNIQUE: Axial computed tomography images of the abdomen and pelvis with intravenous contrast. CONTRAST: With Isovue-370 96 mL. COMPARISON: None provided. FINDINGS: LUNG BASES: No basilar airspace consolidation or pleural effusion. LIVER: Unremarkable. GALLBLADDER AND BILE DUCTS: Status post cholecystectomy. No ductal dilation. PANCREAS: Unremarkable. SPLEEN: Unremarkable. ADRENAL GLANDS: Unremarkable. KIDNEYS, URETERS, AND BLADDER: Unremarkable. No hydronephrosis or nephrolithiasis. No ureteral or tj dder calculi. STOMACH AND BOWEL: Moderate hiatal hernia. Focal inflammation surrounding diverticulum within the lef t lower quadrant at the junction of the sigmoid and descending colon. No free air, free fluid or absc ess. APPENDIX: No CT evidence for appendicitis. PERITONEUM: No free fluid. No free air. LYMPH NODES: No lymphadenopathy. REPRODUCTIVE: Status post hysterectomy. VASCULATURE: No aortic aneurysm. BONES: No fracture or suspicious osseous abnormality. Coarsened trabeculae with mild expansion withi n the left iliac wing. Degenerative changes of bilateral hips, right greater than left. Multilevel degenerative changes of the spine. ABDOMINAL WALL AND SOFT TISSUES: Unremarkable. IMPRESSION: 1. Findings are most compatible with acute uncomplicated diverticulitis at the junction of the desce nding colon and sigmoid colon. No kai perforation or abscess. Recommend correlation with colonoscop y following appropriate treatment and resolution of symptoms. 2. Moderate sliding-type hiatal hernia. 3. Mild expansion of the left iliac wing with coarsened trabeculae which can be seen in Paget's dise ase of the bone. ELECTRONICALLY SIGNED BY: Zafar Blanc M.D. Jun 29, 2019 1:02:12 AM BLOCKER POLISHING This report is intended for review by the ordering physician only, in accordance of law. If you recei ve this report in error, please call [facility] at [phone]. FINAL REPORT EMERGENT AFTER HOURS CT ABDOMEN AND PELVIS WITH IV CONTRAST: 06/29/2019 12:14 a.m. COMPARISON: 11/06/2018 FINDINGS: Bibasilar linear parenchymal changes. These are slightly more progressive than on the prior study. Ev idence for a moderate hiatal hernia. No renal calculus or acute obstruction. There is noted to be marked fatty replacement of the back strap musculature bilaterally, stable. Sigmoid colon diverticulo sis with some minimal pericolonic fat stranding, evidence for diverticulitis. This does not have a si gnificant change in appearance however when compared to the prior study, which may well represent karina e chronic diverticulitis versus new acute diverticulitis but no evidence for abscess or extraluminal gas. This report is in agreement with the preliminary report. CODE QA POS: SJTerrell
[2019-06-29] MEDS: PHENobarbital 32.4 MG TAB PO SCH (14:06)
[2019-06-30 05:22] LABS: #Basophils 0.1 thou/uL (0.0-0.2); #Eosinphils 0.2 thou/uL (0.0-0.7); #Lymphocytes 3.7 thou/uL (1.20-3.40); #Monocytes 0.7 thou/uL (0.11-0.59); %Basophils 1.5 % (0.0-1.0); %Eosinophils 2.5 % (0.0-10.0); %Lymphocytes 48.5 % (21.0-51.0); %Monocytes 8.5 % (0.0-10.0); %Neutrophils 38.9 % (42.0-75.0); Hemoglobin 12.2 g/dL (12.0-16.0); Mean Corpuscular HGB CONC 31.9 g/dL (32.0-36.0); Mean Corpuscular Hemoglobin 28.6 pg (27.0-31.0); Mean Corpuscular Volume 89.6 fL (78.0-98.0); Mean Platelet Volume 7.6 fL (7.4-10.4); Platelet Count 275 thou/uL (130-400); RBC Distribution Width 13.6 % (11.5-14.5); Red Blood Cell (RBC) Count 4.26 mill/uL (4.20-5.40); White Blood Cell (WBC) Count 7.6 thou/uL (4.8-10.8)
[2019-06-30 05:36] LABS: ALT (SGPT) 25 U/L (8-55); AST (SGOT) 24 U/L (5-34); Albumin 3.2 g/dL (3.4-4.8); Alkaline Phosphatase 133 U/L (40-110); Anion Gap 11 mmol/L (10-20); BUN (Urea Nitrogen) 8 mg/dL (9.8-20.1); Bilirubin, Total 0.3 mg/dL (0.2-1.2); Calc. Creatinine Clearance 104 mL/min (70-130); Calcium 8.7 mg/dL (7.8-10.44); Carbon Dioxide 24 mmol/L (23-31); Chloride 107 mmol/L (98-107); Estimated GFR-MDRD Greater than 90; Globulin 3.6 g/dL (2.4-3.5); Glucose 89 mg/dL (83-110); Potassium 3.9 mmol/L (3.5-5.1); Protein, Total 6.8 g/dL (6.0-8.3); Sodium 138 mmol/L (136-145)
[2019-06-30] MEDS: Levothyroxine Sodium 125 MCG TAB PO SCH (06:11)
--- NOTE | 2019-06-30 07:21 | HP ---
Patient of Dr. Lisette Wilosn. HISTORY OF PRESENT ILLNESS: The patient is a very pleasant 73-year-old black female, who presented to the emergency room with lower abdominal pain and migraine headache and was found to have definitive diverticulitis on CT scan. Her white count was slightly elevated to 12,000, but because of her comorbidities of hypothyroidism and hypertension, it was felt that she would benefit from inpatient admission. She is therefore admitted to the hospital and has been started on IV Levaquin and Flagyl and has done much better. She is now having minimal abdominal pain and tenderness. No fever or chills. She has been eating well with no nausea or vomiting. She never had any diarrhea, but did have initial nausea with her abdominal cramps and abdominal pain. PAST MEDICAL HISTORY: As mentioned above, is remarkable for hypothyroidism, hyperlipidemia, hypertension, seizure disorder, degenerative joint disease. PAST SURGICAL HISTORY: Positive for hysterectomy, cholecystectomy, and thyroidectomy. SOCIAL HISTORY: She lives with her family. She is a nonsmoker, nondrinker. ALLERGIES: SHE IS ALLERGIC TO ASPIRIN. HOME MEDICATIONS: Include, 1. Amlodipine 10 mg daily. 2. Nexium 40 mg daily. 3. Phenobarbital mg daily. 4. Furosemide 40 mg daily. 5. Sertraline 100 mg daily. 6. KCl 10 mEq daily. 7. Levothyroxine 125 mcg daily. REVIEW OF SYSTEMS: HEENT: She denies any dizziness, but does have a history of recurrent migraine headaches, now resolved after treatment in the emergency room. She has no change in her vision or hearing. No hoarseness or dysphagia. PULMONARY: She denies cough, sputum production, pneumonia, asthma, or tuberculosis. CARDIOVASCULAR: Denies chest pain, orthopnea, paroxysmal nocturnal dyspnea, or edema. GASTROINTESTINAL: See history of present illness. GENITOURINARY: Denies dysuria, hematuria, or nocturia. MUSCULOSKELETAL: Complains of chronic back pain and joint pain. PHYSICAL EXAMINATION: GENERAL: The patient is an elderly black female, edwy-wn-apqgbuiy distress. Oriented x3 and cooperative. VITAL SIGNS: Showed her to have blood pressure of 126/73, pulse 71, respirations 17, O2 saturations 100% on room air, temperature 97.2. HEENT: Pupils are equal, round, and reactive to light and accommodation. Sclerae anicteric. Conjunctivae pale. Oral mucous membranes well hydrated. NECK: Supple. There are no nodes or masses. JVP is not elevated. ABDOMEN: Soft. Only minimal left lower quadrant tenderness at this time. No rebound. Good bowel sounds. SKIN/EXTREMITIES: Displayed no edema, clubbing, or cyanosis. NEUROLOGIC: Intact. LABORATORY DATA: As mentioned above, [place] [address] in the emergency room, but now is 9300; hematocrit 38; hemoglobin 12. Sodium is 141, potassium 4.1, chloride 108, bicarb 25, BUN 8, creatinine 0.73, glucose 85, calcium 8.5. Urinalysis within normal limits. ASSESSMENT: 1. Resolving diverticulitis, on IV Levaquin and Flagyl. 2. Stable hypertension. 3. Stable hypothyroidism. 4. Stable seizure disorder. PLAN: Advance diet to regular diet. Consider change to oral Levaquin and Flagyl tomorrow. Continue home medications. Dr. Wilson to be back at 9 o'clock tonight. Job ID: [id number]
[2019-06-30] MEDS ORDERED: Sodium Chloride 0.9% 20 ML ONE (08:52)
[2019-06-30] MEDS ORDERED: PHENobarbital 32.4 MG TAB PO SCH (09:00)
[2019-06-30] MEDS: Famotidine 20 MG TAB PO SCH ×2 (09:14→19:59)
[2019-06-30] MEDS: Potassium Chloride 10 MEQ TAB PO SCH (09:15)
[2019-06-30] MEDS: metroNIDAZOLE 500 MG TAB PO SCH ×3 (09:15→20:00)
[2019-06-30] MEDS: Furosemide 40 MG TAB PO SCH (09:15)
[2019-06-30] MEDS: Amlodipine 5 MG TAB PO SCH ×2 (09:16→19:58)
[2019-06-30] MEDS: PHENobarbital 32.4 MG TAB PO SCH (09:48)
[2019-06-30] MEDS: Acetaminophen 500 MG TAB PO PRN (11:16)
--- NOTE | 2019-06-30 20:04 | PRG ---
DATE OF SERVICE: 06/30/2019 SUBJECTIVE: Ms. Thompson is a very pleasant 73-year-old black female, patient of mine, who presented emergency room with right lower abdominal pain and migraine headaches. She was found to have diverticulitis on CT scan. White count was elevated at 12,000. It was felt the patient would benefit from inpatient , so she was admitted to the hospital, started on IV Levaquin and Flagyl. She is much improved today. States she is still having a little bit of pain, but feels much better and is able to tolerate a little bit of food this morning. She denies any fever or chills. She has not had any vomiting, not had any diarrhea. PHYSICAL EXAMINATION: VITAL SIGNS: Reveal blood pressure this morning 126/57, pulse 80 to 83, respirations 18 to 22, O2 saturation 96% on room air, T-max 97.7. GENERAL: This is a well-developed, well-nourished, slightly obese white female, in no apparent distress at this time. HEENT: Normocephalic and nontraumatic cranium. Pupils equally round and reactive. Extraocular movements intact. Nose and throat are slightly dry. NECK: Supple without masses, nodes, or bruits. CHEST: Clear to auscultation. No rales, rhonchi, or wheezes are heard. HEART: Reveals a regular rate and rhythm without murmurs, gallops, or rubs. ABDOMEN: Obese, soft, nontender without organomegaly. The patient states her pain is on the right side. No rebound or guarding is noted. Good bowel sounds are noted. The patient has tolerated food so far so well. GENITOURINARY: Deferred. EXTREMITIES: Reveal no clubbing, cyanosis, or edema. NEUROLOGICAL: The patient is intact. ASSESSMENT: 1. Resolving diverticulitis, now switched over to oral Levaquin and Flagyl. 2. Hypertension. 3. Hypothyroidism. 4. Stable seizure disorder. 5. Abdominal pain. 6. Generalized weakness. PLAN: 1. Continue advance diet. 2. Switch the patient to oral Levaquin and Flagyl. 3. Continue present medications. 4. Possible discharge in the next day or 2. Job ID: [id number]
[2019-07-01] MEDS: Levothyroxine Sodium 125 MCG TAB PO SCH (05:11)
[2019-07-01] MEDS: Furosemide 40 MG TAB PO SCH (09:50)
[2019-07-01] MEDS: PHENobarbital 32.4 MG TAB PO SCH (09:51)
[2019-07-01] MEDS: Potassium Chloride 10 MEQ TAB PO SCH (09:51)
[2019-07-01] MEDS: metroNIDAZOLE 500 MG TAB PO SCH ×3 (09:54→20:36)
[2019-07-01] MEDS: Famotidine 20 MG TAB PO SCH ×2 (09:55→20:36)
[2019-07-01] MEDS: Amlodipine 5 MG TAB PO SCH ×2 (10:00→20:35)
--- NOTE | 2019-07-01 10:59 | PRG ---
DATE OF SERVICE: 07/01/2019 SUBJECTIVE: Ms. Thompson is a well-developed, well-nourished 73-year-old white female, who presented to the emergency room with right lower quadrant abdominal pain and migraine headaches. was consistent with diverticulitis. White count was slightly elevated at 12,000. The patient was admitted to the hospital because of her other multiple comorbidities. She was started on IV Levaquin and Flagyl. They were switched over to orals last night. She continues to feel much better, but this morning when she got out of bed, she was very weak and had to sit down because she could not make it to the bathroom. Blood pressure was a little low on this morning at 105. We did hold her amlodipine. I feel like she may be a little dehydrated. We will continue present course of therapy, and most likely, if she does better tomorrow, discharge her tomorrow afternoon. OBJECTIVE: VITAL SIGNS: This morning reveal blood pressure 105/57, pulse 88 to 94, respirations 18, O2 saturation 97% on room air, and T-max 97.7. GENERAL: This is a well-developed, well-nourished, pleasant, slightly obese black female, in no apparent distress at this time. HEENT: Normocephalic and nontraumatic cranium. Pupils are equally round and reactive. Extraocular movements are intact. Nose and throat are slightly dry. NECK: Supple without masses, nodes, or bruits. CHEST: Clear to auscultation. No rales, rhonchi, or wheezes are heard. HEART: Reveals a regular rate and rhythm without murmurs, gallops, or rubs. ABDOMEN: Obese, soft, slightly tender in right upper quadrant, although the patient has an open cholecystectomy scar on that side and states that her gallbladder was taken out many years ago by . The patient also had some right lower quadrant pain, which she states is much better, and no rebound or guarding is noted. Good bowel sounds are noted. The patient is tolerating food well. GENITOURINARY: Deferred. EXTREMITIES: Reveal no clubbing, cyanosis, or edema. NEUROLOGIC: The patient is intact. ASSESSMENT: 1. Resolving diverticulitis, now switched to oral Levaquin and Flagyl. 2. Hypertension. 3. Hypothyroidism. 4. Stable seizure disorder. 5. Abdominal pain. 6. Generalized weakness. PLAN: 1. The patient has been switched over to oral Levaquin and Flagyl. 2. Continue to slowly advance diet. 3. Continue present medications. 4. Labs today. 5. Discharge most likely tomorrow afternoon if the patient does well. Job ID: [id number]
[2019-07-01 11:48] LABS: #Basophils 0.1 thou/uL (0.0-0.2); #Eosinphils 0.2 thou/uL (0.0-0.7); #Lymphocytes 3.8 thou/uL (1.20-3.40); #Monocytes 1.1 thou/uL (0.11-0.59); #Neutrophils 4.1 thou/uL (1.40-6.50); %Basophils 1.3 % (0.0-1.0); %Eosinophils 1.7 % (0.0-10.0); %Lymphocytes 40.9 % (21.0-51.0); %Neutrophils 44.2 % (42.0-75.0); Hemoglobin 12.8 g/dL (12.0-16.0); Mean Corpuscular HGB CONC 32.4 g/dL (32.0-36.0); Mean Corpuscular Volume 89.4 fL (78.0-98.0); Platelet Count 278 thou/uL (130-400); RBC Distribution Width 13.5 % (11.5-14.5); Red Blood Cell (RBC) Count 4.41 mill/uL (4.20-5.40); White Blood Cell (WBC) Count 9.3 thou/uL (4.8-10.8)
[2019-07-01 11:50] LABS: ALT (SGPT) 19 U/L (8-55); AST (SGOT) 16 U/L (5-34); Albumin 3.4 g/dL (3.4-4.8); Alkaline Phosphatase 133 U/L (40-110); Anion Gap 12 mmol/L (10-20); BUN (Urea Nitrogen) 13 mg/dL (9.8-20.1); Bilirubin, Total 0.2 mg/dL (0.2-1.2); Calc. Creatinine Clearance 92 mL/min (70-130); Calcium 8.7 mg/dL (7.8-10.44); Carbon Dioxide 22 mmol/L (23-31); Chloride 107 mmol/L (98-107); Estimated GFR-MDRD 87; Globulin 3.8 g/dL (2.4-3.5); Glucose 79 mg/dL (83-110); Potassium 4.1 mmol/L (3.5-5.1); Protein, Total 7.2 g/dL (6.0-8.3); Sodium 137 mmol/L (136-145)
[2019-07-01] MEDS: Acetaminophen 500 MG TAB PO PRN (15:36)
[2019-07-02] MEDS: Levothyroxine Sodium 125 MCG TAB PO SCH (06:08)
[2019-07-02] MEDS: Potassium Chloride 10 MEQ TAB PO SCH (09:05)
[2019-07-02] MEDS: metroNIDAZOLE 500 MG TAB PO SCH ×2 (09:05→16:26)
[2019-07-02] MEDS: Furosemide 40 MG TAB PO SCH (09:05)
[2019-07-02] MEDS: PHENobarbital 32.4 MG TAB PO SCH (09:05)
[2019-07-02] MEDS: Amlodipine 5 MG TAB PO SCH (09:05)
[2019-07-02] MEDS: Famotidine 20 MG TAB PO SCH (09:05)
[2019-07-02 17:47] VITALS: BP 137/73; TEMP 97.4
--- NOTE | 2019-07-02 19:20 | DIS ---
DATE OF ADMISSION: 06/29/2019 DATE OF DISCHARGE: 07/02/2019 HOSPITAL COURSE: Ms. Thompson is a very pleasant 73-year-old white female, presented to the emergency room with right lower quadrant abdominal pain and migraine headaches. CT scan was done, which was consistent with diverticulitis, and her white count was elevated to 12,000. She was started on IV Levaquin and Flagyl, and gradually after being hydrated, she felt better. Yesterday, she had an episode of low blood pressure and dizziness. We kept her 1 more day and switched her over to oral Flagyl and Levaquin. She is feeling much better and wishing to go home this evening. She is ready for discharge. DISCHARGE MEDICATIONS: Include the followin. Tylenol 500 mg q.6 p.r.n. 2. Amlodipine 5 mg b.i.d. 3. Lasix 40 mg daily. 4. Levaquin 500 mg daily for 5 more days. 5. Levothyroxine 125 mcg daily. 6. Flagyl 500 mg t.i.d. for 15 doses or 5 more days. 7. Ondansetron 4 mg q.6 hours p.r.n. nausea and vomiting. 8. Protonix 40 mg daily. 9. Phenobarbital 129.6 mg p.o. daily. 10. Potassium chloride 10 mEq daily. 11. Zoloft 100 mg daily. The Levaquin, the metronidazole, and the ondansetron were called in to [facility] this evening, and the patient's daughter will pick it up. OBJECTIVE: VITAL SIGNS: Reveal blood pressure 137/73, pulse 75 to 88, respirations 18 to 20, O2 saturation 96% to 97% on room air, T-max 99.0. LABORATORY DATA: Today reveal white count 9300, hemoglobin 12.8, hematocrit 39.5 with a platelet count of 278,000. Sodium 137, potassium 4.0, chloride 107, carbon dioxide 22 with BUN 13, creatinine 0.79. Glucose was 79. PHYSICAL EXAMINATION: GENERAL: This is a well-developed, well-nourished, very pleasant, 73-year-old, white female, in no apparent distress. HEENT: Reveals normocephalic and nontraumatic cranium. Pupils are equally round and reactive. Extraocular movements are intact. Nose and throat are slightly dry. NECK: Supple without masses, nodes, or bruits. CHEST: Clear to auscultation. No rales, rhonchi, wheezes, or cough is heard. HEART: Reveals a regular rate and rhythm without murmurs, gallops, or rubs. ABDOMEN: Obese and soft. Slightly tender right lower quadrant, although that is much improved. The patient continues to have a cholecystectomy scar on that side, which is an open scar. The patient has no nausea or vomiting today that she complains of. She has no rebound or guarding. Bowel sounds are normal in all 4 quadrants, and the patient is tolerating regular food. : Deferred. EXTREMITIES: Reveal no clubbing, cyanosis, or edema. NEUROLOGIC: The patient is intact. ASSESSMENT: 1. Resolving diverticulitis, now switched to oral Levaquin and Flagyl greater than 24 hours ago and tolerating that well. 2. Hypertension. 3. Hypothyroidism. 4. Stable seizure disorder. 5. Abdominal pain, much decreased. 6. Generalized weakness, much improved. PLAN: 1. The patient is ready for discharge. 2. The patient has been advanced to a regular diet. 3. Continue present medications. 4. Continue Levaquin 500 mg daily for 5 more days. 5. Continue Flagyl 500 mg t.i.d. for 5 more days. 6. Prescription for those 2 medications and ondansetron 4 mg has been called in to [facility] and is ready to pharmacy picking technician this evening. 7. The patient will be discharged this evening to the care of her daughter. She has been given instructions to return to the hospital if she starts running a lots of fever, has increased abdominal pain, etc. She is to be seen by me in 2 weeks. Job ID: [id number]
== END 2019-07-02 19:05 | disposition home or self-care (01) | DRG 392 ==
LOC: NAV ERS 22:51 → UNDOADMOB 06-29 02:02 → NAV ACUTE 06-29 02:02 → OBSVTOIN 06-29 07:36
PROVIDERS: ADMIT Internal Medicine; ATTEND Internal Medicine
DX: K57.92 Diverticulitis of intestine, part unspecified, without perforation or abscess without bleeding (principal); G43.909 Migraine, unspecified, not intractable, without status migrainosus; I10 Essential (primary) hypertension; E03.9 Hypothyroidism, unspecified; M19.90 Unspecified osteoarthritis, unspecified site; G40.909 Epilepsy, unspecified, not intractable, without status epilepticus; Z90.49 Acquired absence of other specified parts of digestive tract; Z90.710 Acquired absence of both cervix and uterus
CPT/HCPCS: 74177; 80048; 80053; 81003; 81015; 83690; 85025; 94760; 96365; 96367; 96375; J0744; J1200; J1956; J2270; J2405; J2550; J7050; Q0162; Q9967

== ENCOUNTER 2019-07-04 13:10 | Emergency (ER) | payer MEDICARE ==
[2019-07-04] MEDS ORDERED: predniSONE 20 MG TAB ONE (14:44)
[2019-07-04] MEDS ORDERED: traMADol HCl 50 MG TAB ONE (14:44)
== END 2019-07-04 15:00 | disposition home or self-care (01) ==
LOC: NAV ERS 13:10
DX: M10.9 Gout, unspecified (principal); E03.9 Hypothyroidism, unspecified; E78.5 Hyperlipidemia, unspecified; I10 Essential (primary) hypertension; G40.909 Epilepsy, unspecified, not intractable, without status epilepticus; M19.90 Unspecified osteoarthritis, unspecified site
CPT/HCPCS: 99283; J7512

== ENCOUNTER 2019-07-09 21:08 | Emergency (ER) | payer MEDICARE ==
[2019-07-09 22:04] LABS: #Basophils 0.2 thou/uL (0.0-0.2); #Eosinphils 0.1 thou/uL (0.0-0.7); #Lymphocytes 4.5 thou/uL (1.20-3.40); #Monocytes 1.6 thou/uL (0.11-0.59); #Neutrophils 10.1 thou/uL (1.40-6.50); %Basophils 1.1 % (0.0-1.0); %Eosinophils 0.3 % (0.0-10.0); %Lymphocytes 27.4 % (21.0-51.0); %Monocytes 9.9 % (0.0-10.0); %Neutrophils 61.2 % (42.0-75.0); Hemoglobin 12.5 g/dL (12.0-16.0); Mean Corpuscular HGB CONC 31.9 g/dL (32.0-36.0); Mean Corpuscular Hemoglobin 28.7 pg (27.0-31.0); Mean Corpuscular Volume 90.2 fL (78.0-98.0); Mean Platelet Volume 7.6 fL (7.4-10.4); Platelet Count 335 thou/uL (130-400); RBC Distribution Width 13.7 % (11.5-14.5); Red Blood Cell (RBC) Count 4.35 mill/uL (4.20-5.40); White Blood Cell (WBC) Count 16.4 thou/uL (4.8-10.8)
--- NOTE | 2019-07-09 22:20 | RAD ---
Exam: XR Ankle Rt 3 View STANDARD HISTORY: Right foot pain. COMPARISON: None FINDINGS: Subcutaneous soft tissue swelling is seen about the distal ankle and extending into the dorsal aspect of the foot. Few calcifications are seen adjacent to the medial aspect of the hindfoot which may be related to prior injury. No acute fracture, dislocation, or other acute osseous abnormality is identified. IMPRESSION: 1. No acute osseous abnormalities is identified. 2. Subcutaneous soft tissue swelling about the ankle and at the dorsal aspect of the foot.
[2019-07-09 22:24] LABS: ALT (SGPT) 15 U/L (8-55); AST (SGOT) 11 U/L (5-34); Albumin 3.4 g/dL (3.4-4.8); Alkaline Phosphatase 131 U/L (40-110); Anion Gap 14 mmol/L (10-20); BUN (Urea Nitrogen) 11 mg/dL (9.8-20.1); Bilirubin, Total 0.1 mg/dL (0.2-1.2); CRP (Inflammatory) 1.83 mg/dL (= or < 0.5); Calc. Creatinine Clearance 0 mL/min (70-130); Calcium 8.3 mg/dL (7.8-10.44); Carbon Dioxide 23 mmol/L (23-31); Chloride 107 mmol/L (98-107); Estimated GFR-MDRD 81; Globulin 4.2 g/dL (2.4-3.5); Glucose 114 mg/dL (83-110); Potassium 3.9 mmol/L (3.5-5.1); Protein, Total 7.6 g/dL (6.0-8.3); Sodium 140 mmol/L (136-145); Uric Acid 5.9 mg/dL (2.6-6.0)
== END 2019-07-09 23:00 | disposition home or self-care (01) ==
LOC: NAV ERS 21:08
DX: M10.9 Gout, unspecified (principal); E03.9 Hypothyroidism, unspecified; E78.5 Hyperlipidemia, unspecified; I10 Essential (primary) hypertension; G40.909 Epilepsy, unspecified, not intractable, without status epilepticus; M19.90 Unspecified osteoarthritis, unspecified site; Z79.899 Other long term (current) drug therapy
CPT/HCPCS: 36415; 80053; 84550; 85025; 86140

== ENCOUNTER 2019-09-04 18:36 | Emergency (ER) | payer MEDICARE ==
[2019-09-04] MEDS ORDERED: predniSONE 20 MG TAB ONE (19:06)
== END 2019-09-04 19:09 | disposition home or self-care (01) ==
LOC: NAV ERS 18:36
DX: M10.9 Gout, unspecified (principal); E03.9 Hypothyroidism, unspecified; E78.5 Hyperlipidemia, unspecified; I10 Essential (primary) hypertension; G40.909 Epilepsy, unspecified, not intractable, without status epilepticus; Z79.52 Long term (current) use of systemic steroids; Z79.899 Other long term (current) drug therapy
CPT/HCPCS: 99283; J7512

== ENCOUNTER 2019-12-03 19:39 | Emergency (ER) | payer MEDICARE ==
[2019-12-03] MEDS ORDERED: Nitrofurantoin Macrocrystal 50 MG CAP ONE (20:04)
[2019-12-03 20:06] LABS: Bilirubin Negative (Negative); Blood, Urine Trace (Negative); Clarity Clear (Clear); Glucose, Urine (Dipstick) Negative (Negative); Ketone, Urine Negative (Negative); Leukocyte Negative (Negative); Nitrite Negative (Negative); Protein, Urine (Dipstick) Negative (Neg-Trace); Urobilinogen 0.2 mg/dL (Less than 2)
[2019-12-03 20:07] LABS: Bacteria/HPF Rare-Few HPF (None Seen); RBC/HPF 0-3 HPF (0-3); WBC/HPF 0-3 HPF (0-3)
== END 2019-12-03 20:19 | disposition home or self-care (01) ==
LOC: NAV ERS 19:39
DX: N39.0 Urinary tract infection, site not specified (principal); E03.9 Hypothyroidism, unspecified; I10 Essential (primary) hypertension; Z79.899 Other long term (current) drug therapy
CPT/HCPCS: 81003; 81015; 87086; 99284

== ENCOUNTER 2020-03-01 09:38 | Outpatient (CLI) | payer MEDICARE ==
--- NOTE | 2020-03-01 09:51 | RAD ---
XR Lumbar Spine Min 4 View HISTORY: Lumbago with sciatica FINDINGS: A transitional vertebra is present. Degenerative changes are seen. No fracture, subluxation, spondylo lysis, spondylolisthesis or bony destruction is seen.
== END 2020-03-01 09:39 | disposition home or self-care (01) ==
LOC: NAV RAD 09:38
PROVIDERS: ATTEND Nurse Practitioner Adult Health
DX: M54.41 Lumbago with sciatica, right side (principal); M81.0 Age-related osteoporosis without current pathological fracture; G89.29 Other chronic pain; M47.816 Spondylosis without myelopathy or radiculopathy, lumbar region
CPT/HCPCS: 72110

== ENCOUNTER 2020-03-06 11:43 | Emergency (ER) | payer MEDICARE ==
[2020-03-06 12:13] LABS: #Basophils 0.1 thou/uL (0.0-0.2); #Monocytes 0.8 thou/uL (0.11-0.59); #Neutrophils 7.1 thou/uL (1.40-6.50); %Basophils 1.2 % (0.0-1.0); %Eosinophils 0.4 % (0.0-10.0); %Lymphocytes 20.1 % (21.0-51.0); %Neutrophils 70.3 % (42.0-75.0); Hemoglobin 14.1 g/dL (12.0-16.0); Mean Corpuscular HGB CONC 31.3 g/dL (32.0-36.0); Mean Corpuscular Hemoglobin 28.9 pg (27.0-31.0); Mean Corpuscular Volume 92.6 fL (78.0-98.0); Platelet Count 256 thou/uL (130-400); RBC Distribution Width 13.1 % (11.5-14.5); Red Blood Cell (RBC) Count 4.88 mill/uL (4.20-5.40); White Blood Cell (WBC) Count 10.1 thou/uL (4.8-10.8)
[2020-03-06 12:30] LABS: ALT (SGPT) 17 U/L (8-55); AST (SGOT) 19 U/L (5-34); Albumin 3.6 g/dL (3.4-4.8); Alkaline Phosphatase 147 U/L (40-110); Anion Gap 13 mmol/L (10-20); BUN (Urea Nitrogen) 7 mg/dL (9.8-20.1); Bilirubin, Total 0.3 mg/dL (0.2-1.2); Calc. Creatinine Clearance 0 mL/min (70-130); Calcium 8.4 mg/dL (7.8-10.44); Carbon Dioxide 23 mmol/L (23-31); Chloride 106 mmol/L (98-107); Estimated GFR-MDRD Greater than 90; Globulin 3.9 g/dL (2.4-3.5); Glucose 136 mg/dL (83-110); Potassium 3.3 mmol/L (3.5-5.1); Protein, Total 7.5 g/dL (6.0-8.3); Sodium 139 mmol/L (136-145)
[2020-03-06 13:06] LABS: Bilirubin Negative (Negative); Blood, Urine Negative (Negative); Clarity Clear (Clear); Glucose, Urine (Dipstick) Negative (Negative); Ketone, Urine Negative (Negative); Leukocyte Negative (Negative); Nitrite Negative (Negative); Protein, Urine (Dipstick) Negative (Neg-Trace); Specific Gravity, Urine 1.015 (1.005-1.030); Urobilinogen 0.2 mg/dL (Less than 2)
--- NOTE | 2020-03-06 13:38 | CT ---
CT BRAIN 03/06/20 PROVIDED CLINICAL HISTORY: Injury, history of seizures. FINDINGS: Comparison 06/01/19. The ventricular system appears normal in size and morphology. There is no evidence for intracranial h emorrhage or mass effect. Stable left parietal scalp nodule. The extracranial soft tissues and osseou s structures demonstrate no acute findings. IMPRESSION: No evidence for intracranial hemorrhage, or mass effect. POS: JONI
== END 2020-03-06 14:08 | disposition home or self-care (01) ==
LOC: NAV ERS 11:43
DX: G40.909 Epilepsy, unspecified, not intractable, without status epilepticus (principal); S00.03XA Contusion of scalp, initial encounter; I10 Essential (primary) hypertension; E78.5 Hyperlipidemia, unspecified; E03.9 Hypothyroidism, unspecified; M19.90 Unspecified osteoarthritis, unspecified site; Z79.899 Other long term (current) drug therapy; W18.2XXA Fall in (into) shower or empty bathtub, initial encounter
CPT/HCPCS: 51701; 70450; 80053; 81003; 84443; 84484; 85025; 93005; 94760

== ENCOUNTER 2020-03-10 06:19 | Emergency (ER) | payer MEDICARE ==
[2020-03-10] MEDS ORDERED: Ondansetron PF 4 MG/2 ML Vial ONE (06:57)
[2020-03-10] MEDS ORDERED: Morphine 4 MG/ML VIAL ONE (06:57)
[2020-03-10 06:59] LABS: #Basophils 0.1 thou/uL (0.0-0.2); #Lymphocytes 4.1 thou/uL (1.20-3.40); #Neutrophils 11.6 thou/uL (1.40-6.50); %Basophils 0.7 % (0.0-1.0); %Eosinophils 0.1 % (0.0-10.0); %Lymphocytes 23.1 % (21.0-51.0); %Neutrophils 65.1 % (42.0-75.0); Hemoglobin 13.3 g/dL (12.0-16.0); Mean Corpuscular Volume 90.5 fL (78.0-98.0); Mean Platelet Volume 7.3 fL (7.4-10.4); Platelet Count 249 thou/uL (130-400); White Blood Cell (WBC) Count 17.8 thou/uL (4.8-10.8)
[2020-03-10 07:04] LABS: INR-International Normal Ratio 1.2; PTT 37.8 sec (22.9-36.1); Prothrombin Time 15.4 sec (12.0-14.7)
[2020-03-10 07:12] LABS: ALT (SGPT) 24 U/L (8-55); AST (SGOT) 23 U/L (5-34); Albumin 3.6 g/dL (3.4-4.8); Alkaline Phosphatase 138 U/L (40-110); Anion Gap 17 mmol/L (10-20); BUN (Urea Nitrogen) 13 mg/dL (9.8-20.1); Bilirubin, Total 0.6 mg/dL (0.2-1.2); Calc. Creatinine Clearance 0 mL/min (70-130); Calcium 9.2 mg/dL (7.8-10.44); Carbon Dioxide 20 mmol/L (23-31); Chloride 102 mmol/L (98-107); Estimated GFR-MDRD Greater than 90; Globulin 4.8 g/dL (2.4-3.5); Glucose 93 mg/dL (83-110); Potassium 3.1 mmol/L (3.5-5.1); Protein, Total 8.4 g/dL (6.0-8.3); Sodium 136 mmol/L (136-145)
[2020-03-10 07:31] LABS: D-Dimer Test Greater than 20.00 *mcg/mL (0.27-0.43)
[2020-03-10] MEDS ORDERED: Potassium Chloride 20 MEQ TAB ONE (07:38)
[2020-03-10] MEDS ORDERED: Enoxaparin Sodium 100 MG/ML SYRINGE ONE (08:12)
[2020-03-10] MEDS ORDERED: cefTRIAXone\\ROCEPHIN 1 GM VIAL ONE (08:12)
[2020-03-10] MEDS ORDERED: Sodium Chloride 0.9% 100 ML ONE (08:14)
--- NOTE | 2020-03-10 08:21 | CT ---
EXAM: Abdomen and pelvic CT scan with contrast: HISTORY: Left groin pain radiating down left leg COMPARISON: 06/29/2019 FINDINGS: Moderate size hiatal hernia Lungs:Minimal patchy linear parenchymal changes in the lung bases worse on the right side, little colby nge from prior study Liver: Unremarkable. Gallbladder:Status post cholecystectomy. Common bile duct:Minimally dilated postcholecystectomy common duct without significant peripheral int rahepatic ductal dilatation. Pancreas:Unremarkable Spleen:Unremarkable. Adrenal glands:Unremarkable. Kidneys:No renal calculus or acute obstruction. No solid or cystic renal mass. No evidence for bowel obstruction. Aorta:No evidence for aortic aneurysm. Spine:No significant acute process. No CT evidence for acute appendicitis. The urinary bladder is unremarkable. Reproductive system:Unremarkable No abscess, adenopathy, or abnormal fluid collection within the abdomen or pelvis. There is evidence for obstructing intraluminal thrombus within the left common femoral vein, left gre ater saphenous vein, extending up into the left iliac vein with extensive surrounding fat stranding evidence for extensive thrombophlebitis with considerable inflammatory fat stranding but no evidence for an associated drainable abscess. IMPRESSION: Extensive left thrombophlebitis including the left common femoral vein, greater saphenous vein, and l eft iliac vein but no evidence for extension into the inferior vena cava. Associated with this is extensive inflammatory fat stranding without evidence for drainable abscess. Findings were discussed with Dr. Nguyen in the emergency room at 8:20 AM CODE CR
[2020-03-10] MEDS ORDERED: Iopamidol 370 76% 100 ML VIAL ONE (09:00)
[2020-03-10 09:01] LABS: Bilirubin Negative (Negative); Blood, Urine Small (Negative); Clarity Slightly Cloudy (Clear); Glucose, Urine (Dipstick) Negative (Negative); Ketone, Urine Negative (Negative); Leukocyte Negative (Negative); Nitrite Positive (Negative); Protein, Urine (Dipstick) Negative (Neg-Trace)
[2020-03-10 09:04] LABS: RBC/HPF 0-3 HPF (0-3); WBC/HPF None Seen HPF (0-3)
[2020-03-10 09:05] LABS: Bacteria/HPF Rare-Few HPF (None Seen)
== END 2020-03-10 09:04 | disposition home or self-care (01) ==
LOC: NAV ERS 06:19
DX: R10.32 Left lower quadrant pain (principal); R79.89 Other specified abnormal findings of blood chemistry; E87.6 Hypokalemia; M79.89 Other specified soft tissue disorders; D72.829 Elevated white blood cell count, unspecified; G89.29 Other chronic pain; E03.9 Hypothyroidism, unspecified; I10 Essential (primary) hypertension; M19.90 Unspecified osteoarthritis, unspecified site; G40.909 Epilepsy, unspecified, not intractable, without status epilepticus; Z79.899 Other long term (current) drug therapy
CPT/HCPCS: 74177; 80053; 81003; 81015; 83605; 85025; 85379; 85610; 85730; 96365; 96372; 96375; J0696; J1650; J2270; J2405; J3490; Q9967

== ENCOUNTER 2020-03-19 22:03 | Emergency (ER) | payer MEDICARE ==
[2020-03-19] MEDS ORDERED: Ondansetron PF 4 MG/2 ML Vial ONE (22:49)
[2020-03-19] MEDS ORDERED: Morphine 4 MG/ML VIAL ONE (22:49)
[2020-03-19 23:07] LABS: #Basophils 0.1 thou/uL (0.0-0.2); #Lymphocytes 4.7 thou/uL (1.20-3.40); #Monocytes 1.1 thou/uL (0.11-0.59); #Neutrophils 8.3 thou/uL (1.40-6.50); %Basophils 0.7 % (0.0-1.0); %Eosinophils 0.2 % (0.0-10.0); %Lymphocytes 32.9 % (21.0-51.0); %Monocytes 7.5 % (0.0-10.0); %Neutrophils 58.6 % (42.0-75.0); Hemoglobin 11.9 g/dL (12.0-16.0); Mean Corpuscular HGB CONC 31.9 g/dL (32.0-36.0); Mean Corpuscular Hemoglobin 29.1 pg (27.0-31.0); Mean Corpuscular Volume 91.2 fL (78.0-98.0); Mean Platelet Volume 6.2 fL (7.4-10.4); Platelet Count 484 thou/uL (130-400); RBC Distribution Width 12.9 % (11.5-14.5); Red Blood Cell (RBC) Count 4.09 mill/uL (4.20-5.40); White Blood Cell (WBC) Count 14.2 thou/uL (4.8-10.8)
[2020-03-19 23:21] LABS: ALT (SGPT) 13 U/L (8-55); AST (SGOT) 14 U/L (5-34); Albumin 3.3 g/dL (3.4-4.8); Alkaline Phosphatase 123 U/L (40-110); Anion Gap 15 mmol/L (10-20); BUN (Urea Nitrogen) 7 mg/dL (9.8-20.1); Bilirubin, Total 0.2 mg/dL (0.2-1.2); Calc. Creatinine Clearance 0 mL/min (70-130); Calcium 8.4 mg/dL (7.8-10.44); Carbon Dioxide 23 mmol/L (23-31); Chloride 102 mmol/L (98-107); Estimated GFR-MDRD 89; Globulin 4.6 g/dL (2.4-3.5); Glucose 90 mg/dL (83-110); Potassium 3.6 mmol/L (3.5-5.1); Protein, Total 7.9 g/dL (6.0-8.3); Sodium 136 mmol/L (136-145)
[2020-03-19] MEDS ORDERED: Sodium Chloride 0.9% 1,000 ML ONE (23:27)
[2020-03-20] MEDS ORDERED: Morphine 4 MG/ML VIAL ONE (01:41)
[2020-03-20] MEDS ORDERED: Lorazepam 2 MG/ML VIAL ONE ×2 (01:51)
--- NOTE | 2020-03-20 10:47 | CT ---
PRELIMINARY REPORT/[facility]/EMERGENCY AFTER HOURS PROCEDURE: EXAM: CT Abdomen and Pelvis Without Intravenous Contrast CLINICAL HISTORY: 74-year-old female presents with increasing pain to the left lower extremity extending onto her abdom en. The patient had been seen on March 10, and was found to have an extensive deep venous thrombosi s of the left leg extending into the common femoral vein. The patient was placed on Xarelto, and Tyle nol 3 for the pain. The patient has been taking her medication as prescribed, but even with the medic ation has had increased pain in the lower extremity extending from the groin distally. The patient is also complaining of some intermittent chest pain, and associated shortness of breath. Chest CTA was ordered originally, vein not holding up, attempted twice, ERMD changed order to noncontrast Abd TECHNIQUE: Axial computed tomography images of the abdomen and pelvis without intravenous contrast. CONTRAST: None. COMPARISON: None provided. FINDINGS: LUNG BASES: No basilar airspace consolidation or pleural effusion. LIVER: Unremarkable. GALLBLADDER AND BILE DUCTS: The gallbladder is absent. No dilatation of the biliary ductal system. PANCREAS: Unremarkable. SPLEEN: Unremarkable. ADRENAL GLANDS: Unremarkable. KIDNEYS, URETERS, AND BLADDER: Unremarkable. No hydronephrosis or nephrolithiasis. No ureteral or bladder calculi. STOMACH AND BOWEL: No obstruction. No wall thickening. No CT evidence of colitis or acute diverticulitis. There is a mo derate sized hiatal hernia. APPENDIX: No CT evidence for appendicitis. PERITONEUM: No free fluid. No free air. LYMPH NODES: No lymphadenopathy. REPRODUCTIVE: Unremarkable as visualized. The uterus is absent. VASCULATURE: No aortic aneurysm. ABDOMINAL WALL AND SOFT TISSUES: Unremarkable. BONES: No fracture or suspicious osseous abnormality. IMPRESSION: No acute intra-abdominal or pelvic abnormality. A moderate sized hiatal hernia is noted. ELECTRONICALLY SIGNED BY: Anastasia Lopez DO Mar 20, 2020 1:31:43 AM STAFFING ANALYST This report is intended for review by the ordering physician only, in accordance of law. If you recei ve this report in error, please call [facility] at [phone]. FINAL REPORT EMERGENCY AFTER HOURS CT ABDOMEN AND PELVIS: I DISAGREE with the preliminary report provided by [facility]. There is thrombus present within the left external iliac vein and left common femoral vein. The patient has a known deep venous throm bosis on the left from an 03/10/2020 deep venous thrombosis study. There is scattered colonic diverti cula without overt evidence of active diverticulosis. There is a moderate size hiatal hernia. There i s bibasilar atelectasis. There are chronic findings as above in the preliminary report. IMPRESSION: Left external iliac and left common femoral vein deep venous thrombosis. Known left lower extremity d eep venous thrombosis from an 03/10/2020 evaluation. POS: TRUDY
== END 2020-03-20 02:23 | disposition short-term general hospital (02) ==
LOC: NAV ERS 22:03
DX: I82.412 Acute embolism and thrombosis of left femoral vein (principal); I82.422 Acute embolism and thrombosis of left iliac vein; R07.9 Chest pain, unspecified; E03.9 Hypothyroidism, unspecified; E78.5 Hyperlipidemia, unspecified; I10 Essential (primary) hypertension; Z79.899 Other long term (current) drug therapy
CPT/HCPCS: 74176; 80053; 83605; 84484; 85025; 93005; 96372; 96374; 96375; J2060; J2270; J2405; J7050

== ENCOUNTER 2020-04-08 12:02 | Outpatient (CLI) | payer MEDICARE ==
--- NOTE | 2020-04-08 12:24 | RAD ---
Exam: XR Ankle Rt 3 View STANDARD HISTORY: Right ankle pain. COMPARISON: 07/09/2019 FINDINGS: The ankle mortise is congruent. No fracture, dislocation, or other osseous abnormality is seen involv ing the right ankle. There is mild subcutaneous soft tissue swelling at the medial aspect of the lower ankle/foot. No othe r interval change from prior exam. IMPRESSION: Subcutaneous soft tissue swelling without evidence of an acute osseous abnormality.
== END 2020-04-08 12:03 | disposition home or self-care (01) ==
LOC: NAV RAD 12:02
PROVIDERS: ATTEND Family Medicine
DX: M25.571 Pain in right ankle and joints of right foot (principal); M79.89 Other specified soft tissue disorders

== ENCOUNTER 2020-05-22 20:11 | Emergency (ER) | payer MEDICARE ==
[2020-05-22 20:55] LABS: #Basophils 0.1 thou/uL (0.0-0.2); #Eosinphils 0.1 thou/uL (0.0-0.7); #Lymphocytes 4.4 thou/uL (1.20-3.40); #Monocytes 0.8 thou/uL (0.11-0.59); #Neutrophils 3.8 thou/uL (1.40-6.50); %Basophils 1.1 % (0.0-1.0); %Eosinophils 0.7 % (0.0-10.0); %Lymphocytes 48.5 % (21.0-51.0); %Monocytes 8.2 % (0.0-10.0); %Neutrophils 41.5 % (42.0-75.0); Hemoglobin 12.4 g/dL (12.0-16.0); Mean Corpuscular HGB CONC 32.4 g/dL (32.0-36.0); Mean Corpuscular Volume 89.6 fL (78.0-98.0); Platelet Count 250 thou/uL (130-400); RBC Distribution Width 13.2 % (11.5-14.5); Red Blood Cell (RBC) Count 4.26 mill/uL (4.20-5.40); White Blood Cell (WBC) Count 9.1 thou/uL (4.8-10.8)
[2020-05-22 21:11] LABS: ALT (SGPT) 9 U/L (8-55); AST (SGOT) 14 U/L (5-34); Albumin 3.4 g/dL (3.4-4.8); Alkaline Phosphatase 119 U/L (40-110); Anion Gap 14 mmol/L (10-20); BUN (Urea Nitrogen) 8 mg/dL (9.8-20.1); Bilirubin, Total 0.2 mg/dL (0.2-1.2); Calc. Creatinine Clearance 0 mL/min (70-130); Calcium 8.5 mg/dL (7.8-10.44); Carbon Dioxide 25 mmol/L (23-31); Chloride 105 mmol/L (98-107); Globulin 3.8 g/dL (2.4-3.5); Glucose 93 mg/dL (83-110); Potassium 3.4 mmol/L (3.5-5.1); Protein, Total 7.2 g/dL (6.0-8.3); Sodium 141 mmol/L (136-145)
== END 2020-05-22 21:53 | disposition home or self-care (01) ==
LOC: NAV ERS 20:11
DX: G40.909 Epilepsy, unspecified, not intractable, without status epilepticus (principal); I95.1 Orthostatic hypotension; E78.5 Hyperlipidemia, unspecified; I10 Essential (primary) hypertension; E03.9 Hypothyroidism, unspecified; Z87.891 Personal history of nicotine dependence; Z79.899 Other long term (current) drug therapy
CPT/HCPCS: 36415; 80053; 85025; 93005

== ENCOUNTER 2020-07-21 11:39 | Emergency (ER) | payer MEDICARE | END 2020-07-21 12:25 | disposition home or self-care (01) | LOC: NAV ERS 11:39 | DX: L89.152 Pressure ulcer of sacral region, stage 2 (principal); E78.5 Hyperlipidemia, unspecified; I10 Essential (primary) hypertension; G40.909 Epilepsy, unspecified, not intractable, without status epilepticus; E03.9 Hypothyroidism, unspecified; M19.90 Unspecified osteoarthritis, unspecified site; Z87.891 Personal history of nicotine dependence | CPT/HCPCS: 99283 ==

== ENCOUNTER 2021-03-06 18:01 | Emergency (ER) | payer MEDICARE ==
[2021-03-06] MEDS ORDERED: levETIRAcetam 500 MG/100 ML PREMIX BAG ONE ×2 (18:11→18:13)
[2021-03-06] MEDS ORDERED: Sodium Chloride 0.9% 500 ML ONE (18:21)
[2021-03-06 18:45] LABS: #Basophils 0.1 thou/uL (0.0-0.2); #Eosinphils 0.1 thou/uL (0.0-0.7); #Lymphocytes 3.9 thou/uL (1.20-3.40); #Monocytes 1.1 thou/uL (0.11-0.59); #Neutrophils 5.3 thou/uL (1.40-6.50); %Basophils 1.3 % (0.0-1.0); %Eosinophils 1.3 % (0.0-10.0); %Lymphocytes 36.7 % (21.0-51.0); %Monocytes 10.8 % (0.0-10.0); %Neutrophils 49.9 % (42.0-75.0); Hemoglobin 14.1 g/dL (12.0-16.0); Mean Corpuscular HGB CONC 30.7 g/dL (32.0-36.0); Mean Corpuscular Hemoglobin 29.4 pg (27.0-31.0); Mean Corpuscular Volume 95.7 fL (78.0-98.0); Mean Platelet Volume 7.4 fL (7.4-10.4); Platelet Count 275 thou/uL (130-400); RBC Distribution Width 13.3 % (11.5-14.5); Red Blood Cell (RBC) Count 4.81 mill/uL (4.20-5.40); White Blood Cell (WBC) Count 10.6 thou/uL (4.8-10.8)
[2021-03-06 19:07] LABS: ALT (SGPT) 11 U/L (8-55); AST (SGOT) 15 U/L (5-34); Albumin 3.6 g/dL (3.4-4.8); Alkaline Phosphatase 138 U/L (40-110); Anion Gap 13 mmol/L (10-20); BUN (Urea Nitrogen) 9 mg/dL (9.8-20.1); Bilirubin, Total 0.2 mg/dL (0.2-1.2); Calc. Creatinine Clearance 0 mL/min (70-130); Calcium 8.6 mg/dL (7.8-10.44); Carbon Dioxide 22 mmol/L (23-31); Chloride 108 mmol/L (98-107); Globulin 4.2 g/dL (2.4-3.5); Glucose 97 mg/dL (83-110); Potassium 3.5 mmol/L (3.5-5.1); Protein, Total 7.8 g/dL (5.8-8.1); Sodium 139 mmol/L (136-145)
[2021-03-06 19:09] LABS: Acetaminophen Less than 6.0 mcg/mL (10.0-30.0); Alcohol Less than 10 mg/dL (Less than 10); CK (CPK) 89 U/L (29-168); Salicylate Less than 8.0 mg/dL (15.0-30.0)
== END 2021-03-06 20:35 | disposition home or self-care (01) ==
LOC: NAV ERS 18:01
DX: G40.909 Epilepsy, unspecified, not intractable, without status epilepticus (principal); E78.5 Hyperlipidemia, unspecified; I10 Essential (primary) hypertension; E03.9 Hypothyroidism, unspecified; Z87.891 Personal history of nicotine dependence; Z79.899 Other long term (current) drug therapy
CPT/HCPCS: 36415; 36416; 70450; 80053; 80184; 80307; 82550; 84146; 85025; 93005; 96365; 96366; J1953; J7030

== ENCOUNTER 2021-11-28 15:28 | Emergency (ER) | payer OTHER ==
[2021-11-28] MEDS ORDERED: Acetaminophen 500 MG TAB ONE (16:05)
[2021-11-28 16:13] LABS: #Basophils 0.1 thou/uL (0.0-0.2); #Eosinphils 0.1 thou/uL (0.0-0.7); #Lymphocytes 1.3 thou/uL (1.20-3.40); #Monocytes 0.9 thou/uL (0.11-0.59); #Neutrophils 5.6 thou/uL (1.40-6.50); %Basophils 1.1 % (0.0-1.0); %Eosinophils 0.8 % (0.0-10.0); %Lymphocytes 16.3 % (21.0-51.0); %Monocytes 11.7 % (0.0-10.0); %Neutrophils 70.1 % (42.0-75.0); Hemoglobin 12.1 g/dL (12.0-16.0); Mean Corpuscular HGB CONC 30.3 g/dL (32.0-36.0); Mean Corpuscular Hemoglobin 29.1 pg (27.0-31.0); Mean Corpuscular Volume 96.2 fL (78.0-98.0); Mean Platelet Volume 8.3 fL (7.4-10.4); Platelet Count 231 thou/uL (130-400); RBC Distribution Width 13.8 % (11.5-14.5); Red Blood Cell (RBC) Count 4.17 mill/uL (4.20-5.40)
[2021-11-28] MEDS ORDERED: Sodium Chloride 0.9% 1,000 ML ONE (16:39)
[2021-11-28 16:42] LABS: ALT (SGPT) 18 U/L (8-55); AST (SGOT) 20 U/L (5-34); Albumin 3.4 g/dL (3.4-4.8); Alkaline Phosphatase 140 U/L (40-110); Anion Gap 17 mmol/L (10-20); BUN (Urea Nitrogen) 14 mg/dL (9.8-20.1); Bilirubin, Total 0.3 mg/dL (0.2-1.2); CK (CPK) 169 U/L (29-168); Calc. Creatinine Clearance 0 mL/min (70-130); Calcium 8.1 mg/dL (7.8-10.44); Carbon Dioxide 20 mmol/L (23-31); Chloride 107 mmol/L (98-107); Estimated GFR 77; Globulin 3.7 g/dL (2.4-3.5); Glucose 90 mg/dL (83-110); Potassium 3.7 mmol/L (3.5-5.1); Protein, Total 7.1 g/dL (5.8-8.1); Sodium 140 mmol/L (136-145)
[2021-11-28 16:56] LABS: Bilirubin Negative (Negative); Blood, Urine Negative (Negative); Clarity Clear (Clear); Glucose, Urine (Dipstick) Negative (Negative); Ketone, Urine Negative (Negative); Leukocyte Negative (Negative); Nitrite Negative (Negative); Protein, Urine (Dipstick) Negative (Neg-Trace); Urobilinogen 0.2 mg/dL (Less than 2)
== END 2021-11-28 18:42 | disposition home or self-care (01) ==
LOC: NAV ERS 15:28
DX: G40.909 Epilepsy, unspecified, not intractable, without status epilepticus (principal); E78.5 Hyperlipidemia, unspecified; I10 Essential (primary) hypertension; E03.9 Hypothyroidism, unspecified; Z79.899 Other long term (current) drug therapy
CPT/HCPCS: 70450; 71045; 80053; 81003; 82550; 83605; 84484; 85025; 93005; 96360; 96361; J7050

== ENCOUNTER 2022-08-27 20:42 | Emergency (ER) | payer OTHER ==
[2022-08-27] MEDS ORDERED: Acetaminophen 500 MG TAB ONE (21:11)
== END 2022-08-27 21:15 | disposition home or self-care (01) ==
LOC: NAV ERS 20:42
DX: R09.81 Nasal congestion (principal); R06.02 Shortness of breath; R05.9 Cough, unspecified; E78.5 Hyperlipidemia, unspecified; I10 Essential (primary) hypertension; E03.9 Hypothyroidism, unspecified; Z79.899 Other long term (current) drug therapy
CPT/HCPCS: 99284

== ENCOUNTER 2023-03-17 18:15 | Emergency (ER) | payer OTHER ==
[2023-03-17] MEDS ORDERED: Lorazepam 2 MG/ML VIAL ONE (18:24)
[2023-03-17 18:51] LABS: Acetaminophen Less than 10 mcg/mL (10.0-30.0); Alcohol Less than 10.0 mg/dL (Less than 10); Salicylate Less than 8.0 mg/dL (15.0-30.0)
[2023-03-17 18:53] LABS: Bilirubin Negative (Negative); Blood, Urine Trace (Negative); Clarity Clear (Clear); Glucose, Urine (Dipstick) Negative (Negative); Ketone, Urine Negative (Negative); Leukocyte Negative (Negative); Nitrite Negative (Negative); Protein, Urine (Dipstick) Negative (Neg-Trace); Specific Gravity, Urine 1.015 (1.005-1.030); Urobilinogen 0.2 mg/dL (Less than 2); pH, Urine 6.5 (5.0-9.0)
[2023-03-17 18:55] LABS: ALT (SGPT) 12 U/L (8-55); AST (SGOT) 15 U/L (5-34); Albumin 4.1 g/dL (3.4-4.8); Alkaline Phosphatase 189 U/L (40-110); Anion Gap 17 mmol/L (10-20); BUN (Urea Nitrogen) 5 mg/dL (9.8-20.1); Bilirubin, Total 0.3 mg/dL (0.2-1.2); CK (CPK) 151 U/L (29-168); Calc. Creatinine Clearance 0 mL/min (70-130); Calcium 8.8 mg/dL (7.8-10.44); Carbon Dioxide 22 mmol/L (23-31); Chloride 104 mmol/L (98-107); Estimated GFR 71; Glucose 112 mg/dL (83-110); Potassium 3.9 mmol/L (3.5-5.1); Protein, Total 8.1 g/dL (5.8-8.1); Sodium 139 mmol/L (136-145)
[2023-03-17 18:56] LABS: #Basophils 0.1 thou/uL (0.0-0.2); #Eosinphils 0.3 thou/uL (0.0-0.7); #Lymphocytes 3.5 thou/uL (1.20-3.40); #Neutrophils 6.2 thou/uL (1.40-6.50); %Basophils 1.2 % (0.0-1.0); %Eosinophils 2.4 % (0.0-10.0); %Lymphocytes 31.4 % (21.0-51.0); %Monocytes 8.8 % (0.0-10.0); %Neutrophils 56.2 % (42.0-75.0); Hematocrit 44.9 % (36.0-47.0); Hemoglobin 14.3 g/dL (12.0-16.0); Mean Corpuscular HGB CONC 31.9 g/dL (32.0-36.0); Mean Corpuscular Hemoglobin 30.3 pg (27.0-31.0); Mean Corpuscular Volume 95.1 fl (78.0-98.0); Mean Platelet Volume 8.2 fL (7.4-10.4); Platelet Count 291 10x3/uL (130-400); RBC Distribution Width 12.1 % (11.5-14.5); Red Blood Cell (RBC) Count 4.72 mill/uL (4.20-5.40); White Blood Cell (WBC) Count 11.1 10x3/uL (4.8-10.8)
[2023-03-17 18:57] LABS: Troponin I Less than 0.010 ng/mL (< 0.028)
[2023-03-17 19:21] LABS: Amphetamine Not Detected (NotDetected); Barbiturates Screen Detected (NotDetected); Benzodiazepine Screen Not Detected (NotDetected); Cocaine Metabolite Screen Not Detected (NotDetected); Methadone Not Detected (NotDetected); Methamphetamine Not Detected (NotDetected); Opiate Screen Not Detected (NotDetected); Oxycodone Screen Not Detected (NotDetected); Phencyclidine (PCP) Not Detected (NotDetected); THC/Cannabinoid Screen Not Detected (NotDetected); Tricyclic Screen Not Detected (NotDetected)
[2023-03-17 19:24] LABS: Bacteria/HPF Rare-Few HPF (None Seen); CAUTI Indications for Culture Alt mental st,lethar; RBC/HPF 0-3 HPF (0-3); Squamous Epithelial 0-3 HPF (0-3); WBC/HPF 0-3 HPF (0-3)
[2023-03-17 19:25] LABS: Urine Culture Reflex No No
[2023-03-17 19:57] LABS: SARS-CoV-2 NAA Rapid Test Not Detected (NotDetected)
== END 2023-03-17 20:25 | disposition home or self-care (01) ==
LOC: NAV ERS 18:15
DX: R56.9 Unspecified convulsions (principal); B34.9 Viral infection, unspecified; E78.5 Hyperlipidemia, unspecified; I10 Essential (primary) hypertension; E03.9 Hypothyroidism, unspecified; Z79.899 Other long term (current) drug therapy; Z20.822 Contact with and (suspected) exposure to COVID-19
CPT/HCPCS: 0240U; 70450; 71045; 72125; 80053; 80306; 80307; 81001; 82550; 82962; 84484; 85025; 93005; 94760; 36416; 51702; 96374; J2060

== ENCOUNTER 2024-01-28 04:50 | Emergency (ER) | payer OTHER ==
[2024-01-28 05:08] LABS: Bilirubin Negative (Negative); Blood, Urine Small (Negative); Clarity Cloudy (Clear); Glucose, Urine (Dipstick) Negative (Negative); Ketone, Urine Negative (Negative); Leukocyte Large (Negative); Nitrite Negative (Negative); Protein, Urine (Dipstick) 30 mg/dL (Neg-Trace)
[2024-01-28 05:12] LABS: Bacteria/HPF Rare-Few HPF (None Seen); CAUTI Indications for Culture Dysuria,urgency,freq; RBC/HPF 0-3 HPF (0-3); WBC/HPF Greater than 50 HPF (0-3)
[2024-01-28 05:14] LABS: Urine Culture Reflex Yes Yes
[2024-01-28] MEDS ORDERED: Acetaminophen 500 MG TAB ONE (05:29)
== END 2024-01-28 05:36 | disposition home or self-care (01) ==
LOC: NAV ERS 04:50
DX: N39.0 Urinary tract infection, site not specified (principal); I10 Essential (primary) hypertension
CPT/HCPCS: 81001; 87077; 87086; 87186; 99283

== ENCOUNTER 2024-05-28 15:54 | Emergency (ER) | payer OTHER ==
[2024-05-28 16:50] LABS: ALT (SGPT) 13 U/L (Less than 34); AST (SGOT) 23 U/L (11-34); Albumin 3.8 g/dL (3.1-4.5); Alkaline Phosphatase 173 U/L (40-110); Anion Gap 17 mmol/L (10-20); BUN (Urea Nitrogen) 17 mg/dL (9.8-20.1); Bilirubin, Total 0.1 mg/dL (0.3-1.2); Calc. Creatinine Clearance 0 mL/min (70-130); Calcium 9.1 mg/dL (7.8-10.44); Carbon Dioxide 18 mmol/L (23-31); Chloride 107 mmol/L (98-107); Estimated GFR 35; Globulin 4.1 g/dL (2.4-3.5); Glucose 95 mg/dL (83-110); Lipase 13 U/L (8-78); Potassium 3.9 mmol/L (3.5-5.1); Protein, Total 7.9 g/dL (5.8-8.1); Sodium 138 mmol/L (136-145)
[2024-05-28 16:51] LABS: #Basophils 0.1 thou/uL (0.0-0.2); #Eosinophils 0.1 thou/uL (0.0-0.7); #Lymphocytes 4.8 thou/uL (1.20-3.40); #Monocytes 0.8 thou/uL (0.11-0.59); #Neutrophils 5.2 thou/uL (1.40-6.50); %Basophils 1.2 % (0.0-1.0); %Lymphocytes 43.5 % (21.0-51.0); %Monocytes 7.4 % (0.0-10.0); %Neutrophils 46.8 % (42.0-75.0); Hematocrit 37.9 % (36.0-47.0); Hemoglobin 11.6 g/dL (12.0-16.0); Mean Corpuscular HGB CONC 30.6 g/dL (32.0-36.0); Mean Corpuscular Hemoglobin 27.3 pg (27.0-31.0); Mean Corpuscular Volume 89.4 fl (78.0-98.0); Mean Platelet Volume 7.1 fL (7.4-10.4); Platelet Count 329 10x3/uL (130-400); RBC Distribution Width 13.8 % (11.5-14.5); Red Blood Cell (RBC) Count 4.24 mill/uL (4.20-5.40)
[2024-05-28 18:43] LABS: Bilirubin Negative (Negative); Blood, Urine Negative (Negative); Clarity Hazy (Clear); Glucose, Urine (Dipstick) Negative (Negative); Ketone, Urine Negative (Negative); Leukocyte Negative (Negative); Nitrite Negative (Negative); Protein, Urine (Dipstick) Negative (Neg-Trace); Specific Gravity, Urine 1.015 (1.005-1.030); pH, Urine 6.5 (5.0-9.0)
[2024-05-28 18:54] LABS: CAUTI Indications for Culture Pelvic or flank pain; RBC/HPF 0-3 HPF (0-3); Squamous Epithelial 0-3 HPF (0-3); WBC/HPF 0-3 HPF (0-3)
[2024-05-28 18:55] LABS: Urine Culture Reflex No No
[2024-05-28] MEDS ORDERED: Meclizine HCl 25 MG TAB ONE (19:22)
== END 2024-05-28 20:17 | disposition home or self-care (01) ==
LOC: NAV ERS 15:54
DX: A08.4 Viral intestinal infection, unspecified (principal); R42 Dizziness and giddiness; E86.0 Dehydration; I10 Essential (primary) hypertension; R29.700 NIHSS score 0
CPT/HCPCS: 71045; 80053; 81001; 83690; 85025; 87428; 96374; 96375

== ENCOUNTER 2024-06-18 10:53 | Outpatient (CLI) | payer OTHER ==
[2024-06-18 13:30] LABS: ALT (SGPT) 14 U/L (Less than 34); AST (SGOT) 20 U/L (11-34); Alkaline Phosphatase 142 U/L (40-110); Anion Gap 14 mmol/L (10-20); BUN (Urea Nitrogen) 11 mg/dL (9.8-20.1); Bilirubin, Total 0.3 mg/dL (0.3-1.2); Calc. Creatinine Clearance 0 mL/min (70-130); Calcium 9.4 mg/dL (7.8-10.44); Carbon Dioxide 22 mmol/L (23-31); Chloride 108 mmol/L (98-107); Estimated GFR 59; Globulin 4.4 g/dL (2.4-3.5); Glucose 92 mg/dL (83-110); Potassium 3.7 mmol/L (3.5-5.1); Protein, Total 8.4 g/dL (5.8-8.1); Sodium 140 mmol/L (136-145)
== END 2024-06-18 10:54 | disposition home or self-care (01) ==
LOC: NAV RAD 10:53
PROVIDERS: ATTEND Family Medicine
DX: R06.02 Shortness of breath (principal)
CPT/HCPCS: 36415; 71046; 80053; 83880